=== PATIENT | male | born 2000 | race African-American/Black ===

== ENCOUNTER 2021-08-05 11:45 | Emergency (ER) | payer OTHER, SELFPAY ==
--- NOTE | ~2021-08-05 | XR_ITS ---
EXAMINATION: XR CHEST CLINICAL INFORMATION: Shortness of breath and wheezing COMPARISON: None TECHNIQUE: 2 views of the chest were obtained. FINDINGS: No significant abnormality is noted involving the heart, lungs, mediastinum, bony thorax or soft tissues. XR/XR chest 2V IMPRESSION: Unremarkable examination.
[2021-08-05 11:55] VITALS: BP 130/80; PULSE 72; RESP 18; TEMP 37.1; O2SAT 97; BMI 27.8
[2021-08-05] MEDS: Albuterol/Iprat 2.5/0.5MG 3 ML AMPUL.NEB INHALE (13:16)
[2021-08-05] MEDS: predniSONE 20 MG TABLET 60 MG PO (13:17)
--- NOTE | 2021-08-05 13:19 | ED.ASTHMA ---
HPI - Asthma General Chief Complaint: Asthma Stated Complaint: difficulty breathing Time Seen by Provider: 08/05/21 12:53 Source: patient Mode of arrival: ambulatory Limitations: no limitations History of Present Illness HPI Narrative: 21-year-old male with a history of asthma here with complaints of cough and wheezing for 1 month after running out of his home Flovent and albuterol. He tells me he does not have a primary care doctor and that is why he ran out of his medication. He denies any fevers, chills, shortness of breath or chest pain. Today he felt like he had an asthma attack and was able to use the sister's albuterol inhaler with improvement of symptoms. Related Data Previous Rx's Medication Instructions Recorded prednisone 20 mg tablet 40 mg PO DAILY #8 tab 08/05/21 Allergies Allergy/AdvReac Type Severity Reaction Status Date / Time No Known Allergies Allergy Verified 08/05/21 11:58 Review of Systems Review of Systems: Yes all other systems are reviewed and are negative Constitutional: Constitutional: Reports no additional constitutional complaints, Denies body ache(s), Denies chills, Denies fever(s), Denies headache(s) and Denies weakness Eyes: Eyes: Reports no additional eye complaints and Denies change in vision ENT: Reports system reviewed and no additional complaints, except as documented, Denies dizziness, Denies headache(s), Denies nasal congestion, Denies nasal discharge and Denies neck pain Cardiovascular: Cardiovascular: Reports no additional cardiovascular complaints, Denies chest pain, Denies leg edema and Denies dyspnea Respiratory: Respiratory: Reports no additional respiratory complaints, Reports cough, Denies dyspnea and Reports wheezing Gastrointestinal: Gastrointestinal: Reports no additional gastrointestinal complaints, Denies abdominal pain, Denies diarrhea, Denies nausea and Denies vomiting Genitourinary: Genitourinary: Denies urinary incontinence Musculoskeletal: Musculoskeletal: Reports no additional musculoskeletal complaints, Denies back pain, Denies arthralgias, Denies joint swelling, Denies neck pain, Denies numbness and Denies tingling Integumentary/Breasts: Skin/Breast: Reports system reviewed and no additional complaints, except as docu and Denies rash Neurologic: Reports system reviewed and no additional complaints, except as documented, Denies Abnormal speech present, Denies dizziness, Denies headache(s), Denies numbness, Denies tingling and Denies weakness Allergic/Immunologic: Allergic/Immunologic: Reports wheezing PMFSH Past Medical History Attestation statement: The following information was validated with the patient. Source: old records reviewed and nursing notes reviewed Social History Social History Advance Directives: No Advance Directives Information Provided: Yes Physical Exam Vital Signs: Vital Signs: Last Vital Signs Temp 97.8 F 08/05/21 13:50 Pulse 70 08/05/21 13:50 Resp 16 08/05/21 13:50 BP 104/71 08/05/21 13:50 Pulse Ox 97 08/05/21 13:50 Body Mass Index 27.8 Const: General: cooperative, healthy appearing, comfortable and no acute distress Orientation/consciousness: patient oriented x3 Limitations: no limitations HENMT: Head: Yes normal to inspection Ears: hearing grossly normal bilaterally General nose exam: Normal external nose present Face and sinus: Yes normal facial exam Mouth: Normal oral and palatal mucosa present Throat: Yes posterior oropharynx normal Eyes: General: appearance normal, both eyes and all related structures Pupils: Equal, round and reactive pupils present Neck: Neck: Yes normal visual inspection Chest: Chest palpation & inspection: normal inspection of the chest Resp: Other: Inspiratory and expiratory wheezing throughout Effort & Inspection: normal respiratory effort Cardio: Rate: regular rate Rhythm: regular rhythm Peripheral pulses: Peripheral pulses 2+ throughout GI: Inspection: Yes normal to inspection Palpation (GI): Soft to palpation and nontender Auscultation: normal bowel sounds Back/Spine/Pelvis: Thoracic/Lumbar Spine: thoracic and lumbar spine normal to inspection Skin: General skin exam: no rashes or lesions noted Neuro: General: patient oriented x3, no focal motor deficits and normal sensation to monofilament Cranial nerves: Yes Equal, round and reactive pupils present Cognition (Neuro): normal cognition Speech: No Abnormal speech present Gait exam (Neuro): Normal gait present Motor exam (neuro): 5/5 motor strength present throughout Extrem: General: Yes normal to inspection, Yes no pedal edema and Yes no calf tenderness Course Course Course Narrative: 21 year old man here with asthma symptoms. Ran out of medication and does not have a primary. On arrival patient is well appearing. . Stable vital inspiratory and expiratory wheezing throughout. Will give DuoNeb, check chest x-ray and COVID screen. 1430-COVID screen negative. Chest x-ray shows no acute finding. Patient is feeling improved after receiving the albuterol nebulizer. Will discharge home with albuterol MDI and a course of prednisone. Reviewed worrisome signs and symptoms of when to return to the emergency department. Comfortable discharge home. MDM - Asthma MDM Narrative Medical decision making narrative: perc 0-less likey pe Medical Records Attestation: I reviewed the patient's medical records. Lab Data Attestation: I reviewed the patient's lab results. Labs: Lab Results 08/05/21 Range/Units 13:41 COVID-19 (MICHELLE) Negative (Negative) COVID-19 Clin Com See Note Imaging Data Chest x-ray: Attestation: I personally reviewed and interpreted this imaging study as follows: Radiologist's impression: Alma angel [employer]~ EXAMINATION: XR CHEST CLINICAL INFORMATION: Shortness of breath and wheezing COMPARISON: None TECHNIQUE: 2 views of the chest were obtained. FINDINGS: No significant abnormality is noted involving the heart, lungs, mediastinum, bony thorax or soft tissues. XR/XR chest 2V IMPRESSION: Unremarkable examination. Discharge Plan Discharge Clinical Impression: Asthma with acute exacerbation Patient Disposition: Home, Self-Care Instructions: Asthma (ED) Additional Instructions: Chest x-ray is negative COVID screen negative Start prednisone tomorrow Use inhaler 2 puffs every 4-6 hours as needed for cough or wheezing Prescriptions: New prednisone 20 mg tablet 40 mg PO DAILY Qty: 8 RF: 0 Referrals: Nigel Johnson MD [Primary Care Provider] - 2 days Stand Alone Forms: Work/School Release Interventions: ED Discharge Assessment Last Done: 08/05/21 14:27
[2021-08-05 13:50] VITALS: BP 104/71; PULSE 70; RESP 16; TEMP 36.6; O2SAT 97
[2021-08-05 14:15] LABS: COVID-19 Test Negative (Negative)
[2021-08-05] MEDS: Albuterol Sulfate 90 MCG 8 GM INHALER 2 PUFF INHALE (14:37)
== END 2021-08-05 14:38 | disposition home or self-care (01) ==
PROVIDERS: Nurse Practitioner Family; Emergency Provider Emergency Medicine; PCP Pediatrics
DX: J45.901 Unspecified asthma with (acute) exacerbation (principal); Z20.822 Contact with and (suspected) exposure to COVID-19
CPT/HCPCS: 36415; 71046; 87635; 99284

== ENCOUNTER 2021-09-13 12:10 | Emergency (ER) | payer OTHER, SELFPAY ==
[2021-09-13 13:11] VITALS: BP 131/71; PULSE 95; RESP 16; TEMP 37.6; O2SAT 96; BMI 29.2
[2021-09-13 13:51] LABS: Strep A Nucleic Acid Negative (Negative)
[2021-09-13 14:15] LABS: Influenza A PCR NEGATIVE (Negative); Influenza B PCR NEGATIVE (Negative); Resp Syncy Virus RNA Qual PCR NEGATIVE (Negative); SARS COV2 PCR INHOUSE NEGATIVE (Negative)
--- NOTE | 2021-09-13 14:40 | ED.URI ---
HPI - URI/Sore Throat General Chief Complaint: Upper Respiratory Symptoms Stated Complaint: Sore Throat COVID Exposure Time Seen by Provider: 09/13/21 12:47 Source: patient and family (Girlfriend at bedside ) Mode of arrival: ambulatory Limitations: no limitations History of Present Illness MD elicited complaint: sore throat Onset (ago): day(s) (2) Consistency: constant and progressively worsening Severity: moderate Able to tolerate fluids by mouth: Yes Exacerbating factors: swallowing Relieving factors: nothing Context: sick contacts ( Patient's girlfriend with similar sore throat and patient works with a co-worker that tested positive for COVID) Associated symptoms: denies other symptoms Treatments prior to arrival: none Related Data Previous Rx's Medication Instructions Recorded prednisone 20 mg tablet 40 mg PO DAILY #8 tab 08/05/21 amoxicillin 875 mg-potassium 1 tab PO BID 10 Days #20 tab 09/13/21 clavulanate 125 mg tablet (Augmentin) ibuprofen 800 mg tablet 800 mg PO Q8H PRN #14 tab 09/13/21 Allergies Allergy/AdvReac Type Severity Reaction Status Date / Time No Known Allergies Allergy Verified 08/05/21 11:58 Review of Systems Review of Systems: Constitutional : No Weight loss, No Fever, No Chills, No Night Sweats, No Fatigue, No Malaise ENT/Mouth : No Hearing loss, No Ear Pain, No Nasal Congestion, No Sinus Pain, No Hoarseness, + sore throat, No Rhinorrhea, No Swallowing Difficulty Eyes: No Eye Pain, No Swelling, No Redness, No Foreign Body, No Discharge, No Vision Changes Cardiovascular : No Chest Pain, No SOB, No Dyspnea on Exertion, No Orthopnea, No Edema, No Palpitations Respiratory : No Cough, No Sputum, No Wheezing, No Smoke Exposure, No Dyspnea Gastrointestinal : No Nausea, No Vomiting, No Diarrhea, No Constipation, No abdominal Pain, No Hematochezia, No Melena Genitourinary : no irregular bleeding, No Dysuria, No Urinary Frequency, No Hematuria, No Urinary Incontinence, No Urgency, No Flank Pain, No Urinary Flow Changes, No Hesitancy Musculoskeletal : No joint pain, No Myalgias, No Joint Swelling Skin : No Skin Lesions, No rash Neuro : No Weakness, No Numbness, No Paresthesias, No Loss of Consciousness, No Dizziness, No Headache Psych : No Anxiety/Panic, No Depression, No SI/HI/AH/VH, No Social Issues, Heme/Lymph: No Bruising, No Bleeding,No Lymphadenopathy Endocrine : No Polyuria, No Polydipsia, No Temperature Intolerance Yes all other systems are reviewed and are negative [facility] Past Medical History Attestation statement: The following information was validated with the patient. Medical History Asthma Social History Social History Advance Directives: No Advance Directives Information Provided: No Physical Exam Vital Signs: Vital Signs: Last Vital Signs Temp 99.7 F 09/13/21 13:11 Pulse 95 09/13/21 13:11 Resp 16 09/13/21 13:11 BP 131/71 09/13/21 13:11 Pulse Ox 96 09/13/21 13:11 BMI result Body Mass Index 29.2 vital signs have been reviewed as normal and appeared to be correct. Blood pressure normal. Heart rate normal. Respiration rate normal. Temperature normal. Oxygen saturation normal. Appearance: Alert. Oriented X3. No acute distress. Head: Normal external exam. Normocephalic. Atraumatic. Eyes: PERRLA. EOMI. Conjunctiva and sclera normal. Eyelids normal. ENT: EAC normal. TM's Normal. posterior pharynx mildly erythematous with moderate amounts of exudate that is easily removable with a cotton swab throughout. Uvula midline. Moist mucous membranes. No trismus noted. No drooling noted. No muffled voice noted. Neck: Normal inspection. Neck supple. FROM. No adenopathy. Thyroid Normal. No meningeal signs. No neck mass noted. CVS: Normal heart rate and rhythm. Respiratory: No respiratory distress. Painless inspiration. Back: Full range of motion noted. No rashes/lesion/induration/fluctuance or signs of infection noted. Skin: Skin warm and dry. Normal skin color. Normal skin turgor. No rashes/lesions/lacerations noted. Extremities: Extremities exhibit normal range of motion. Extremities nontender. Neuro: Oriented X 3. No motor deficit. No sensory deficit. Reflexes normal. Normal steady gait. No focal neuro deficits noted. Course Course Course Narrative: 21-year-old male presenting to the ED with his girlfriend with a sore throat for the past 2 days worse today. he reports that he has a co-worker that tested positive for COVID. he denies any other symptoms complaints or concerns. he was negative for COVID/RSV/flu. he is negative for strep. I explained him that we should tested for mono although refused and is requesting antibiotics for bacterial pharyngitis due to he believes he got this from his girlfriend who gets tonsillitis yearly. Despite him having a negative strep will send him home on antibiotics with instructions return if any new or worsening symptoms to follow up with primary care provider. Patient understands agrees this plan. MDM - URI/Sore Throat Medical Records Attestation: I reviewed the patient's medical records. Lab Data Attestation: I reviewed the patient's lab results. Labs: Lab Results 09/13/21 09/13/21 Range/Units 13:18 13:18 Influenza Type A (PCR) NEGATIVE (Negative) Influenza Type B (PCR) NEGATIVE (Negative) RSV RNA Qual (PCR) NEGATIVE (Negative) SARS-CoV-2 RNA (RT-PCR) NEGATIVE (Negative) S. pyogenes GrpA SHIRA Negative (Negative) Discharge Plan Discharge Clinical Impression: Pharyngitis Patient Disposition: Home, Self-Care Instructions: Pharyngitis (ED) Prescriptions: New amoxicillin-pot clavulanate [Augmentin] 875-125 mg tablet 1 tab PO BID 10 Days Qty: 20 RF: 0 ibuprofen 800 mg tablet 800 mg PO Q8H PRN (Reason: pain) Qty: 14 RF: 0 No Action prednisone 20 mg tablet 40 mg PO DAILY Qty: 8 RF: 0 Referrals: Physician,None [Primary Care Provider] - 2 days (your pcp) Interventions: ED Discharge Assessment Last Done: 09/13/21 14:49 Print Language: Bengali
== END 2021-09-13 14:50 | disposition home or self-care (01) ==
PROVIDERS: Physician Assistant Medical; Emergency Provider Emergency Medicine
DX: J02.9 Acute pharyngitis, unspecified (principal); Z20.822 Contact with and (suspected) exposure to COVID-19
CPT/HCPCS: 0241U; 36415; 87651; 99283

== ENCOUNTER 2021-10-08 07:43 | Emergency (ER) | payer OTHER, SELFPAY ==
--- NOTE | ~2021-10-08 | XR_ITS ---
EXAMINATION: XR CHEST CLINICAL INFORMATION: 1 COMPARISON: August 05, 2021 TECHNIQUE: AP portable view of the chest was obtained. FINDINGS: No significant abnormality is noted involving the heart, lungs, mediastinum, bony thorax or soft tissues. XR/XR chest 1V IMPRESSION: No acute disease.
[2021-10-08 08:27] VITALS: BP 155/95; PULSE 98; RESP 18; TEMP 36.6; O2SAT 95; BMI 30.7
--- NOTE | 2021-10-08 08:27 | ED_ITS ---
HPI - SOB/Dyspnea General Chief Complaint: Dyspnea Stated Complaint: asthma Time Seen by Provider: 10/08/21 08:05 Source: patient Mode of arrival: ambulatory Limitations: no limitations History of Present Illness HPI Narrative: 21-year-old male with long history of asthma came in for evaluation of asthma exacerbation. Patient with difficulty breathing and wheezing for the past 2-3 days, patient do not have asthma medication at home using his sister medication. Patient declined any upper respiratory symptoms infection. No sick contact, no recent travel. No fevers Patient admits to smoking marijuana mostly on the daily basis. Related Data Previous Rx's Medication Instructions Recorded prednisone 20 mg tablet 40 mg PO DAILY #8 tab 08/05/21 amoxicillin 875 mg-potassium 1 tab PO BID 10 Days #20 tab 09/13/21 clavulanate 125 mg tablet (Augmentin) ibuprofen 800 mg tablet 800 mg PO Q8H PRN #14 tab 09/13/21 albuterol sulfate 90 mcg/actuation 1 inh INHALATION QID PRN #6.7 g 10/08/21 aerosol inhaler prednisone 20 mg tablet 20 mg PO BID #10 tab 10/08/21 Allergies Allergy/AdvReac Type Severity Reaction Status Date / Time No Known Allergies Allergy Verified 08/05/21 11:58 Review of Systems Review of Systems: All other systems are reviewed and are negative Constitutional: Reports as per HPI and Reports no additional constitutional complaints Eyes: Reports as per HPI and Reports no additional eye complaints Reports system reviewed and no additional complaints, except as documented Cardiovascular: Reports as per HPI and Reports no additional cardiovascular complaints Respiratory: Reports as per HPI and Reports no additional respiratory complaints Gastrointestinal: Reports as per HPI and Reports no additional gastrointestinal complaints Genitourinary: Reports no additional female genitourinary complaints Musculoskeletal: Reports no additional musculoskeletal complaints Skin/Breast: Reports system reviewed and no additional complaints, except as docu Psychiatric: Reports no additional psychiatric complaints Endocrine: Reports no additional endocrine complaints Hematologic/Lymphatic: Reports no additional hematologic/lymphatic complaints Allergic/Immunologic: Reports no additional allergic/immunologic complaints Reports system reviewed and no additional complaints, except as documented and Reports Abnormal speech present [facility] Past Medical History Medical History Asthma Social History Social History Advance Directives: No Advance Directives Information Provided: Yes Physical Exam Vital Signs: Vital Signs: Last Vital Signs Temp 98 F 10/08/21 08:27 Pulse 87 10/08/21 08:32 Resp 18 10/08/21 08:32 BP 155/95 H 10/08/21 08:27 Pulse Ox 95 10/08/21 08:27 BMI result Body Mass Index 30.7 Vital signs have been reviewed as appeared to be correct. Blood pressure normal. Heart rate normal. Respiration rate normal. Temperature normal. Oxygen saturation normal. Appearance: Alert. Oriented X3. No acute distress. Head: Normal external exam. Normocephalic. Atraumatic. No Moncada signs noted. No raccoon eyes noted Eyes: PERRLA. EOMI. Conjunctiva and sclera normal. Eyelids normal. ENT: TM's Normal. Pharynx normal. Uvula midline. Moist mucous membranes. No trismus noted. No drooling noted. No muffled voice noted. Neck: Normal inspection. Neck supple. FROM. No adenopathy. Thyroid Normal. No meningeal signs. No neck mass noted. CVS: Normal heart rate and rhythm. Heart sound normal. No murmurs noted. Pulses normal throughout. Respiratory: No respiratory distress. Painless inspiration. Breath sounds normal. No wheezes/rales/rhonchi noted. Chest nontender. No accessory muscle usage noted or decreased air movement noted. Abdomen: Soft and nontender. Bowel sounds normal in all 4 quadrants. No distention noted. No organomegaly noted. No visible injury noted. Back: No CVA tenderness. Full range of motion noted. Skin: Skin warm and dry. Normal skin color. Normal skin turgor. No rashes/lesions/lacerations noted. Extremities: No lower extremity edema. Extremities exhibit normal range of motion. Extremities nontender. Neuro: Oriented X 3. Cranial nerve exam: II-XII are grossly intact No motor deficit. No sensory deficit. Reflexes normal. Course Course Course Narrative: Acute asthma exacerbation. Patient needed prescription for bronchodilator/will start the patient on prednisone for few days. MDM - SOB/Dyspnea Lab Data Attestation: I reviewed the patient's lab results. Labs: Lab Results 10/08/21 Range/Units 08:38 Influenza Type A (PCR) NEGATIVE (Negative) Influenza Type B (PCR) NEGATIVE (Negative) RSV RNA Qual (PCR) NEGATIVE (Negative) SARS-CoV-2 RNA (RT-PCR) NEGATIVE (Negative) Imaging Data Chest x-ray: Attestation: I personally reviewed and interpreted this imaging study as follows: Radiologist's impression: No acute pathology. Discharge Plan Discharge Clinical Impression: Asthma exacerbation Patient Disposition: Home, Self-Care Instructions: Asthma (ED) Prescriptions: New prednisone 20 mg tablet 20 mg PO BID Qty: 10 RF: 0 albuterol sulfate 90 mcg/actuation HFA aerosol inhaler 1 inh inhalation QID PRN (Reason: shortness of breath or wheezing) Qty: 6.7 RF: 0 No Action prednisone 20 mg tablet 40 mg PO DAILY Qty: 8 RF: 0 amoxicillin-pot clavulanate [Augmentin] 875-125 mg tablet 1 tab PO BID 10 Days Qty: 20 RF: 0 ibuprofen 800 mg tablet 800 mg PO Q8H PRN (Reason: pain) Qty: 14 RF: 0 Referrals: Physician,None [Primary Care Provider] - 2 days
[2021-10-08] MEDS: Albuterol/Iprat 2.5/0.5MG 3 ML AMPUL.NEB INHALE (08:31)
[2021-10-08] MEDS: Albuterol Sulfate (0.083%) 2.5 MG/3 ML VIAL.NEB 5 MG INHALE (08:31)
[2021-10-08 08:32] VITALS: PULSE 87; RESP 18; O2SAT 97
[2021-10-08] MEDS: Albuterol Sulfate 90 MCG 8 GM INHALER 1 PUFF INHALE (08:33)
[2021-10-08] MEDS: predniSONE 20 MG TABLET 40 MG PO (08:36)
[2021-10-08 09:30] LABS: Influenza A PCR NEGATIVE (Negative); Influenza B PCR NEGATIVE (Negative); Resp Syncy Virus RNA Qual PCR NEGATIVE (Negative); SARS COV2 PCR INHOUSE NEGATIVE (Negative)
[2021-10-08 10:07] VITALS: PULSE 91; RESP 16; O2SAT 97
== END 2021-10-08 10:24 | disposition home or self-care (01) ==
PROVIDERS: Emergency Provider Emergency Medicine
DX: J45.901 Unspecified asthma with (acute) exacerbation (principal); Z20.822 Contact with and (suspected) exposure to COVID-19; F12.90 Cannabis use, unspecified, uncomplicated
CPT/HCPCS: 0241U; 71045; 94640; 94644; 99282; 99285

== ENCOUNTER 2022-07-20 15:52 | Emergency (ER) | payer OTHER, SELFPAY ==
--- NOTE | ~2022-07-20 | XR_ITS ---
EXAMINATION: XR CHEST CLINICAL INFORMATION: Cough COMPARISON: Previous chest x-rays July and September 2021 TECHNIQUE: Frontal view of the chest was obtained. FINDINGS: The cardiac silhouette does not appear enlarged. There are increased right suprahilar lung markings and question central right upper lobe bronchiectasis and bronchial wall thickening. The lungs are otherwise clear. There is no pleural effusion or pneumothorax. Bony structures are unremarkable. XR/XR chest 1V IMPRESSION: Question focal small central infiltrate in the right upper lobe and right upper lobe central bronchiectasis and bronchial wall thickening. Chest x-ray follow-up following antibiotic therapy recommended. If radiographic abnormality persists, follow-up chest CT scan should be considered.
[2022-07-20 16:12] VITALS: BP 124/69; PULSE 104; RESP 20; TEMP 38.1; O2SAT 96; BMI 29.8
[2022-07-20] MEDS: Acetaminophen 325 MG TABLET 650 MG PO (16:18)
[2022-07-20 16:35] LABS: Strep A Nucleic Acid Negative (Negative)
[2022-07-20 17:05] LABS: Influenza A PCR NEGATIVE (Negative); Influenza B PCR NEGATIVE (Negative); Resp Syncy Virus RNA Qual PCR NEGATIVE (Negative); SARS COV2 PCR INHOUSE NEGATIVE (Negative)
== END 2022-07-20 23:43 | disposition left against medical advice (07) ==
PROVIDERS: Emergency Provider Emergency Medicine
DX: J02.9 Acute pharyngitis, unspecified (principal); Z20.822 Contact with and (suspected) exposure to COVID-19; R50.9 Fever, unspecified
CPT/HCPCS: 0241U; 71045; 87651; 99282; 99283

== ENCOUNTER 2022-10-12 09:55 | Emergency (ER) | payer OTHER, SELFPAY ==
--- NOTE | ~2022-10-12 | XR_ITS ---
EXAMINATION: XR chest 2V CLINICAL INFORMATION: Reason for Exam asthma, cough, shortness of breath COMPARISON: 07/20/2022 TECHNIQUE: XR chest 2V Lungs and Natali: Both lungs are clear. Pleura: Normal. Costophrenic angles are sharp. No pneumothorax. Heart: The heart is normal in size. Mediastinum: The mediastinum is within normal limits.. Bones: Skeletal structures included are normal for patient's age. XR/XR chest 2V IMPRESSION: Normal chest x-ray.
[2022-10-12 10:34] VITALS: BP 124/81; PULSE 124; RESP 18; TEMP 37.8; O2SAT 96; BMI 30.5
[2022-10-12] MEDS: Acetaminophen 325 MG TABLET 975 MG PO (10:47)
[2022-10-12 11:09] LABS: COVID-19 Test Negative (Negative); IDNOW Serial# 16C4AD1C; IDNOW Serial# BCCEAD1C; Influenza A Positive (Negative); Influenza B2 Negative (Negative)
--- NOTE | 2022-10-12 11:57 | ED.ASTHMA ---
HPI - Asthma General Chief Complaint: Upper Respiratory Symptoms Stated Complaint: fever asthma Time Seen by Provider: 10/12/22 10:47 Source: patient Mode of arrival: ambulatory Limitations: no limitations History of Present Illness HPI Narrative: Patient is a 22-year-old male who presents to the emergency department for evaluation of upper respiratory symptoms. Patient states that symptom onset was yesterday evening. He was having intermittent chest tightness, shortness of breath, wheezing, fevers, sweating, and intermittent headache. He reports a history of asthma, has been using his girlfriend's albuterol nebulizer machine with some improvement. Girlfriend is also ill with similar symptoms. Denies dizziness, lightheadedness, vision changes, neck pain, neck stiffness, nausea, vomiting, abdominal pain, numbness or tingling of extremities. Related Data Previous Rx's Medication Instructions Recorded prednisone 20 mg tablet 40 mg PO DAILY #8 tabs 08/05/21 amoxicillin 875 mg-potassium 1 tab PO BID 10 days #20 tabs 09/13/21 clavulanate 125 mg tablet (Augmentin) ibuprofen 800 mg tablet 800 mg PO Q8H PRN pain #14 tabs 09/13/21 albuterol sulfate 90 mcg/actuation 1 inh inhalation QID PRN shortness 10/08/21 aerosol inhaler of breath or wheezing #6.7 grams prednisone 20 mg tablet 20 mg PO BID #10 tabs 10/08/21 albuterol sulfate 2.5 mg/3 mL 2.5 mg (3 mL) inhalation Q4-6H PRN 10/12/22 (0.083 %) solution for nebulization shortness of breath or wheezing #75 mL albuterol sulfate 90 mcg/actuation 2 inh inhalation Q4-6H PRN 10/12/22 breath activated powder inhaler shortness of breath or wheezing #1 ea oseltamivir 75 mg capsule (Tamiflu) 75 mg PO BID 5 days #10 caps 10/12/22 prednisone 20 mg tablet 40 mg PO DAILY #8 tabs 10/12/22 Allergies Allergy/AdvReac Type Severity Reaction Status Date / Time No Known Allergies Allergy Verified 08/05/21 11:58 Review of Systems Review of Systems: Constitutional: Positive fever. No chills. No weakness. Positive fatigue. ENT/ Mouth: No Ear Pain, positive Nasal Congestion, nosore throat, No Rhinorrhea, No Swallowing Difficulty Skin: No rash or itching. Cardiovascular: positive chest tightness. No palpitations. Respiratory: positive shortness of breath. Positive cough. positive wheezing.No sputum production. Gastrointestinal: No nausea. No vomiting. No diarrhea. No abdominal pain. Genitourinary: No burning micturition. No urinary frequency. Neurologic: Positive headache. No dizziness. No syncope. No numbness or tingling in the extremities. Musculoskeletal: No muscle pain. No back pain. No joint pain or stiffness. Yes all other systems are reviewed and are negative [facility] Past Medical History Attestation statement: The following information was validated with the patient. Source: old records reviewed Medical History Asthma Social History Social History Advance Directives: No Advance Directives Information Provided: No Physical Exam Vital Signs: Vital Signs: Last Vital Signs Temp 99.1 F 10/12/22 14:50 Pulse 125 H 10/12/22 14:50 Resp 19 10/12/22 14:50 BP 115/63 10/12/22 14:50 Pulse Ox 95 10/12/22 14:50 O2 Del Method 10/12/22 14:50 BMI result Body Mass Index 30.5 Appearance: Alert.?Oriented to person, place and time. No acute distress.?Normal affect. Eyes: Pupils equal, round and reactive to light.? ENT: TM normal bilaterally. Pharynx normal.?? Neck: Normal inspection.? Neck supple.??No cervical adenopathy CVS: Heart sounds normal. Normal heart rate and rhythm.? Pulses normal.?? Respiratory: No respiratory distress.? Lung sounds clear the excretory wheezing throughout Abdomen: Soft and non-tender. Normoactive bowel sounds. Skin: Skin warm and dry.? Normal skin color.? ? Extremities: No lower extremity edema.? Neuro: Moves all extremities spontaneously. Sensation intact bilaterally. No motor deficits. Ambulates with normal steady gait. Course Reevaluation(s) Reevaluation #1: COVID-19 testing is negative. Influenza testing is positive, patient would like to receive treatment with Tamiflu, side effects reviewed. At this time history and physical exam not consistent with ACS/PE/pneumonia. patient received albuterol nebulizer and prednisone with improvement in aeration, inspiratory and expiratory wheezing remains. O2 saturation 94% on room air, tachycardic with heart rate in the 120s. Patient would like to try and go home today, will obtain ambulatory O2 trial removed in addition will have patient received additional albuterol nebulizer, although this may contribute to his tachycardia, would like to see improvement in respiratory status prior to discharge. Time: 12:47 Reevaluation #2: Lung sounds improvement in aeration, no wheezing at this time. He is tachycardic, heart rate 115-120, although I think this is reactive due to albuterol. Room air ambulatory O2 trial with O2 sat greater than 95%, has no dyspnea. He is afebrile. Requesting discharge home at this time, I feel that he is stable for discharge, Will send prescription for albuterol solution, albuterol inhaler, and prednisone in addition to Tamiflu. Discussed conservative treatment including rest, hydration, Tylenol/ibuprofen as needed for fever and body aches, saline nasal spray, humidifier, [id number] cold medication. Advised to follow-up with primary care provider as needed, discussed reasons to return back to the emergency department. All questions were answered. Patient discharged home in stable condition. Provided with a return to work note. Time: 14:15 Medications Administered Discontinued Medications Generic Name Dose Route Start Last Admin Trade Name Freq PRN Reason Stop Dose Admin Acetaminophen 975 mg 10/12/22 10:42 10/12/22 10:47 Acetaminophen 325 Mg Tablet PO 10/12/22 10:43 975 mg ONCE ONE Administration Albuterol Sulfate 5 mg/ 7.5 mg 10/12/22 11:21 10/12/22 12:13 Albuterol Sulfate 2.5 mg INHALE 10/12/22 11:22 7.5 mg ONCE ONE Administration Albuterol Sulfate 7.5 mg/ 10 mg 10/12/22 12:57 10/12/22 13:29 Albuterol Sulfate 2.5 mg INHALE 10/12/22 12:58 10 mg ONCE ONE Administration Albuterol/Ipratropium 3 ml 10/12/22 11:21 10/12/22 12:13 Albuterol/Iprat 2.5/0.5mg 3 Ml Ampul.Neb INHALE 10/12/22 11:22 3 ml ONCE ONE Administration Prednisone 40 mg 10/12/22 11:21 10/12/22 12:33 Prednisone 20 Mg Tablet PO 10/12/22 11:22 40 mg ONCE ONE Administration Medical Decision Making Medical Decision Making [facility] Narrative: Patient is a 22-year-old male with past medical history of alcohol asthma, presenting for evaluation of upper respiratory symptoms. overall he is well-appearing the, fever 100.1, tachycardic with heart rate in the 120s, O2 saturation 93% on room air. No increased work of breathing or tachypnea, though he does have expiratory wheezing throughout. Patient received albuterol nebulizer treatment, in addition to oral prednisone. Given his significant other is also in similar symptoms I suspect viral upper respiratory infection causing acute exacerbation of asthma. He is able to speak in clear short sentences, is ambulatory with a steady gait. Will obtain chest x-ray to further evaluate for pneumonia, in addition to COVID - 19 and influenza testing. Differential Diagnosis Differential Diagnoses: The differential diagnosis associated with the presentation includes ( As noted above) Lab Data [facility] Lab Attestation statement: I reviewed the patient's lab results. Labs: Lab Results 10/12/22 10/12/22 Range/Units 10:50 10:50 COVID-19 (MICHELLE) Negative (Negative) COVID-19 Clin Com See Note Influenza Type A (SHIRA) Positive A (Negative) Influenza Type B (SHIRA) Negative (Negative) Influenza A & B Note See Note Independent Interpretation I performed an independent interpretation of an: Plain X-Ray Interpretation: I reviewed chest x-ray personally and agree with radiologist impression. Radiology Impression Discussion of test interpretation with radiology: I have reviewed the radiologist's reading. Radiologist Impression: XR/XR chest 2V IMPRESSION: Normal chest x-ray. Prescription Management I considered prescription management with: Antiviral ( Prescription for Tamiflu presents to patient's pharmacy.) and Other ( Prednisone, albuterol inhaler, albuterol nebulizer solution) Discharge Plan Discharge Clinical Impression: Influenza, Asthma exacerbation Patient Disposition: Home, Self-Care Instructions: Asthma (ED), Influenza (ED) Additional Instructions: prescription for prednisone, albuterol, and Tamiflu were sent to your pharmacy you should return to the emergency department any new or worsening symptoms or concerns. This includes but is not limited to chest pain, shortness of breath, difficulty breathing, dizziness, lightheadedness. Should be sure to rest, drink plenty of fluids. Alternate between Tylenol and ibuprofen as needed for fever or pain. You should remain out of work until you are without fever for 24 hours. If without the use of Tylenol or ibuprofen. Follow-up with your primary care provider Prescriptions: New prednisone 20 mg tablet 40 mg PO DAILY Qty: 8 0RF albuterol sulfate 2.5 mg /3 mL (0.083 %) solution for nebulization 2.5 mg inhalation Q4-6H PRN (Reason: shortness of breath or wheezing) Qty: 75 0RF albuterol sulfate 90 mcg/actuation aerosol powdr breath activated 2 inh inhalation Q4-6H PRN (Reason: shortness of breath or wheezing) Qty: 1 0RF oseltamivir [Tamiflu] 75 mg capsule 75 mg PO BID 5 Days Qty: 10 0RF No Action prednisone 20 mg tablet 20 mg PO BID Qty: 10 0RF albuterol sulfate 90 mcg/actuation HFA aerosol inhaler 1 inh inhalation QID PRN (Reason: shortness of breath or wheezing) Qty: 6.7 0RF prednisone 20 mg tablet 40 mg PO DAILY Qty: 8 0RF amoxicillin-pot clavulanate [Augmentin] 875-125 mg tablet 1 tab PO BID 10 Days Qty: 20 0RF ibuprofen 800 mg tablet 800 mg PO Q8H PRN (Reason: pain) Qty: 14 0RF Referrals: Physician,Unknown J [Primary Care Provider] - Stand Alone Forms: Work/School Release Interventions: ED Discharge Assessment Last Done: 10/12/22 15:19 Discharge Date/Time: 10/12/22 15:19
[2022-10-12] MEDS: Albuterol/Iprat 2.5/0.5MG 3 ML AMPUL.NEB INHALE (12:13)
[2022-10-12] MEDS: Albuterol Sulfate 5 MG, Albuterol Sulfate (0.083%) 2.5 MG 7.5 MG INHALE (12:13)
[2022-10-12 12:14] VITALS: PULSE 104; RESP 18; O2SAT 97
[2022-10-12] MEDS: predniSONE 20 MG TABLET 40 MG PO (12:33)
[2022-10-12 12:34] VITALS: BP 128/66; PULSE 119; RESP 16; O2SAT 97
--- NOTE | 2022-10-12 13:02 | MHC.EDTECH ---
walking 02 sat check performed. pt 02 sat stayed 95% both sitting and walking
[2022-10-12] MEDS: Albuterol Sulfate 7.5 MG, Albuterol Sulfate (0.083%) 2.5 MG 10 MG INHALE (13:29)
[2022-10-12 14:30] VITALS: BP 132/64; PULSE 127; RESP 22; TEMP 37.1; O2SAT 95
[2022-10-12 14:50] VITALS: BP 115/63; PULSE 125; RESP 19; TEMP 37.3; O2SAT 95
== END 2022-10-12 15:19 | disposition home or self-care (01) ==
PROVIDERS: Emergency Provider Student in an Organized Health Care Education/Training Program
DX: J11.1 Influenza due to unidentified influenza virus with other respiratory manifestations (principal); R50.9 Fever, unspecified; R00.0 Tachycardia, unspecified; J45.901 Unspecified asthma with (acute) exacerbation; Z20.822 Contact with and (suspected) exposure to COVID-19
CPT/HCPCS: 71046; 87502; 87635; 94640; 99284; 99285

== ENCOUNTER 2022-10-13 01:23 | Emergency (ER) | payer OTHER, SELFPAY ==
[2022-10-13] VITALS (7 sets, daily range): BP systolic 127–151; BP diastolic 70–84; PULSE 89–114; RESP 17–24; TEMP 36.9–37.9; O2SAT 96–98; BMI 30.5
--- NOTE | 2022-10-13 03:30 | ED.SOB ---
HPI - SOB/Dyspnea General Chief Complaint: Dyspnea Stated Complaint: difficulty breathing Time Seen by Provider: 10/13/22 03:19 Source: patient Mode of arrival: ambulatory Limitations: no limitations History of Present Illness HPI Narrative: 22-year-old male history of asthma was diagnosed yesterday with influenza a presented with increased wheezing and shortness of breath with no fever patient tried his asthma home medication with no relief. Coughing clear sputum. Related Data Previous Rx's Medication Instructions Recorded prednisone 20 mg tablet 40 mg PO DAILY #8 tabs 08/05/21 amoxicillin 875 mg-potassium 1 tab PO BID 10 days #20 tabs 09/13/21 clavulanate 125 mg tablet (Augmentin) ibuprofen 800 mg tablet 800 mg PO Q8H PRN pain #14 tabs 09/13/21 albuterol sulfate 90 mcg/actuation 1 inh inhalation QID PRN shortness 10/08/21 aerosol inhaler of breath or wheezing #6.7 grams prednisone 20 mg tablet 20 mg PO BID #10 tabs 10/08/21 albuterol sulfate 2.5 mg/3 mL 2.5 mg (3 mL) inhalation Q4-6H PRN 10/12/22 (0.083 %) solution for nebulization shortness of breath or wheezing #75 mL albuterol sulfate 90 mcg/actuation 2 inh inhalation Q4-6H PRN 10/12/22 breath activated powder inhaler shortness of breath or wheezing #1 ea oseltamivir 75 mg capsule (Tamiflu) 75 mg PO BID 5 days #10 caps 10/12/22 prednisone 20 mg tablet 40 mg PO DAILY #8 tabs 10/12/22 prednisone 20 mg tablet 20 mg PO BID #10 tabs 10/13/22 Allergies Allergy/AdvReac Type Severity Reaction Status Date / Time No Known Allergies Allergy Verified 08/05/21 11:58 Review of Systems Review of Systems: All other systems are reviewed and are negative Constitutional: Reports as per HPI and Reports no additional constitutional complaints Eyes: Reports as per HPI and Reports no additional eye complaints Reports system reviewed and no additional complaints, except as documented Cardiovascular: Reports as per HPI and Reports no additional cardiovascular complaints Respiratory: Reports as per HPI and Reports no additional respiratory complaints Gastrointestinal: Reports as per HPI and Reports no additional gastrointestinal complaints Genitourinary: Reports no additional female genitourinary complaints Musculoskeletal: Reports no additional musculoskeletal complaints Skin/Breast: Reports system reviewed and no additional complaints, except as docu Psychiatric: Reports no additional psychiatric complaints Endocrine: Reports no additional endocrine complaints Hematologic/Lymphatic: Reports no additional hematologic/lymphatic complaints Allergic/Immunologic: Reports no additional allergic/immunologic complaints Reports system reviewed and no additional complaints, except as documented and Reports Abnormal speech present [facility] Past Medical History Medical History Asthma Social History Social History Smoked in Last 30 Days: Yes Use of substances other than those prescribed or required for medical reasons: Yes Substance Use Type: Marijuana Advance Directives: No Physical Exam Vital Signs: Vital Signs: Last Vital Signs Temp 100.2 F 10/13/22 03:52 Pulse 93 10/13/22 04:26 Resp 18 10/13/22 04:26 BP 136/71 10/13/22 03:51 Pulse Ox 98 10/13/22 03:51 O2 Del Method 10/13/22 03:51 BMI result Body Mass Index 30.5 Vital signs have been reviewed as appeared to be correct. Blood pressure normal. Heart rate normal. Respiration rate normal. Temperature normal. Oxygen saturation normal. Appearance: Alert. Oriented X3. No acute distress. Head: Normal external exam. Normocephalic. Atraumatic. No Moncada signs noted. No raccoon eyes noted Eyes: PERRLA. EOMI. Conjunctiva and sclera normal. Eyelids normal. ENT: TM's Normal. Pharynx normal. Uvula midline. Moist mucous membranes. No trismus noted. No drooling noted. No muffled voice noted. Neck: Normal inspection. Neck supple. FROM. No adenopathy. Thyroid Normal. No meningeal signs. No neck mass noted. CVS: Normal heart rate and rhythm. Heart sound normal. No murmurs noted. Pulses normal throughout. Respiratory: No respiratory distress. Painless inspiration. Breath sounds normal. Diffuse mild expiratory wheezing with prolonged expiration. Chest nontender. No accessory muscle usage noted or decreased air movement noted. Abdomen: Soft and nontender. Bowel sounds normal in all 4 quadrants. No distention noted. No organomegaly noted. No visible injury noted. Back: No CVA tenderness. Full range of motion noted. Skin: Skin warm and dry. Normal skin color. Normal skin turgor. No rashes/lesions/lacerations noted. Extremities: No lower extremity edema. Extremities exhibit normal range of motion. Extremities nontender. Neuro: Oriented X 3. Cranial nerve exam: II-XII are grossly intact No motor deficit. No sensory deficit. Reflexes normal. Course Course Course Narrative: Asthma exacerbation with the flu, patient felt better after given prednisone in the ED with multiple bronchodilator treatment. Patient has enough albuterol at home both for the machine and pump will prescribed prednisone. Medications Administered Discontinued Medications Generic Name Dose Route Start Last Admin Trade Name Freq PRN Reason Stop Dose Admin Albuterol Sulfate 5 mg/ 7.5 mg 10/13/22 03:29 10/13/22 04:24 Albuterol Sulfate 2.5 mg INHALE 10/13/22 03:30 7.5 mg ONCE ONE Administration Albuterol/Ipratropium 3 ml 10/13/22 03:29 10/13/22 04:24 Albuterol/Iprat 2.5/0.5mg 3 Ml Ampul.Neb INHALE 10/13/22 03:30 3 ml ONCE ONE Administration Prednisone 20 mg 10/13/22 03:29 10/13/22 04:05 Prednisone 20 Mg Tablet PO 10/13/22 03:30 20 mg ONCE ONE Administration Medical Decision Making Differential Diagnosis Differential Diagnoses: The differential diagnosis associated with the presentation includes (Asthma exacerbation, bronchitis, pneumonia.) Discharge Plan Discharge Clinical Impression: Asthma with exacerbation Patient Disposition: Home, Self-Care Instructions: Asthma (ED) Prescriptions: New prednisone 20 mg tablet 20 mg PO BID Qty: 10 0RF No Action prednisone 20 mg tablet 20 mg PO BID Qty: 10 0RF albuterol sulfate 90 mcg/actuation HFA aerosol inhaler 1 inh inhalation QID PRN (Reason: shortness of breath or wheezing) Qty: 6.7 0RF prednisone 20 mg tablet 40 mg PO DAILY Qty: 8 0RF albuterol sulfate 2.5 mg /3 mL (0.083 %) solution for nebulization 2.5 mg inhalation Q4-6H PRN (Reason: shortness of breath or wheezing) Qty: 75 0RF albuterol sulfate 90 mcg/actuation aerosol powdr breath activated 2 inh inhalation Q4-6H PRN (Reason: shortness of breath or wheezing) Qty: 1 0RF oseltamivir [Tamiflu] 75 mg capsule 75 mg PO BID 5 Days Qty: 10 0RF prednisone 20 mg tablet 40 mg PO DAILY Qty: 8 0RF amoxicillin-pot clavulanate [Augmentin] 875-125 mg tablet 1 tab PO BID 10 Days Qty: 20 0RF ibuprofen 800 mg tablet 800 mg PO Q8H PRN (Reason: pain) Qty: 14 0RF Referrals: Physician,Unknown J [Primary Care Provider] -
[2022-10-13] MEDS: predniSONE 20 MG TABLET PO (04:05)
--- NOTE | 2022-10-13 04:09 | PC.NURSE ---
Pt is hypertensive, Pt has audible throughout bilaterally expiratory wheezing sound. Pt was medicated as order. Pt's girlfriend is at bedside. Pt is on the monitor and it shows sinus tachy. + skin turgor, capillary refill <2.
[2022-10-13] MEDS: Albuterol Sulfate 5 MG, Albuterol Sulfate (0.083%) 2.5 MG 7.5 MG INHALE (04:24)
[2022-10-13] MEDS: Albuterol/Iprat 2.5/0.5MG 3 ML AMPUL.NEB INHALE (04:24)
== END 2022-10-13 05:33 | disposition home or self-care (01) ==
PROVIDERS: Emergency Provider Emergency Medicine
DX: J45.901 Unspecified asthma with (acute) exacerbation (principal); R00.0 Tachycardia, unspecified
CPT/HCPCS: 94640; 99284; 99285

== ENCOUNTER 2022-12-26 17:32 | Emergency (ER) | payer OTHER, SELFPAY ==
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
[2022-12-26 17:51] VITALS: BP 145/91; PULSE 83; RESP 20; TEMP 36.2; O2SAT 98; BMI 29.8
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
[2022-12-26] MEDS: Ketorolac Tromethamine 30 MG/ML VIAL IM (19:15)
== END 2022-12-26 19:22 | disposition home or self-care (01) ==
PROVIDERS: Emergency Provider Emergency Medicine Emergency Medical Services; PCP Internal Medicine
DX: S16.1XXA Strain of muscle, fascia and tendon at neck level, initial encounter (principal); V43.52XA Car driver injured in collision with other type car in traffic accident, initial encounter; Y93.89 Activity, other specified; Y92.414 Local residential or business street as the place of occurrence of the external cause; Y99.9 Unspecified external cause status
CPT/HCPCS: 72040; 73030; 96372; 99282; 99284; J1885

== ENCOUNTER 2023-02-08 14:06 | Emergency (ER) | payer OTHER, SELFPAY ==
--- NOTE | ~2023-02-08 | CT_ITS ---
EXAMINATION: CT ABDOMEN AND PELVIS WITH CONTRAST CLINICAL INFORMATION: Findings pain, fever. COMPARISON: None available. TECHNIQUE: Multidetector volumetric images were obtained from the superior aspect of the liver through the pubic symphysis following administration 85 mL of Omnipaque 350 intravenous contrast. Sagittal and coronal reformatted images were obtained on the technologist's workstation. Oral contrast: No This CT examination was performed using dose optimization techniques as appropriate, variously including the following: *Automated exposure control *Adjustment of mA and/or kV according to patient size (this includes techniques or standardized protocols for targeted exams where dose is matched to indication/reason for exam; i.e. extremities or head) *Use of iterative reconstruction technique DLP: 672 mGy-cm FINDINGS: LUNG BASES: The visualized lung bases are unremarkable. LIVER, GALLBLADDER, AND BILIARY TREE: Decreased attenuation of the liver parenchyma suggesting hepatic steatosis. Otherwise, the liver is normal in size and shape without focal lesion. No biliary ductal dilatation. The gallbladder is unremarkable with no evidence of radiopaque gallstones, gallbladder wall thickening, or obvious pericholecystic inflammatory changes. PANCREAS: Unremarkable. SPLEEN: Unremarkable. ADRENAL GLANDS: Unremarkable. KIDNEYS AND URETERS: The kidneys are normal in size, shape, and attenuation. No hydronephrosis, hydroureter, or calculi seen. No perinephric stranding. BLADDER: Unremarkable. GASTROINTESTINAL TRACT: The stomach and the small bowel are nondilated. Normal appendix. No pericolonic inflammatory changes. No evidence of bowel obstruction. ABDOMINAL WALL: No significant hernia is appreciated. LYMPH NODES: Normal. VASCULAR: Unremarkable. PELVIC VISCERA: Unremarkable. OSSEOUS STRUCTURES: No acute or aggressive appearing osseous abnormalities. CT/CT abdomen pelvis w IV con IMPRESSION: 1. Hepatic steatosis. 2. Otherwise, normal examination.
--- NOTE | ~2023-02-08 | XR_ITS ---
EXAMINATION: XR CHEST CLINICAL INFORMATION: Weakness, history of asthma. COMPARISON: Chest radiograph 10/12/2022. TECHNIQUE: 2 views of the chest were obtained. FINDINGS: No significant abnormality is noted involving the heart, lungs, mediastinum, bony thorax or soft tissues. XR/XR chest 2V IMPRESSION: Unremarkable examination.
[2023-02-08 14:53] VITALS: BP 128/89; PULSE 100; RESP 18; TEMP 39.3; O2SAT 99; BMI 30.5
--- NOTE | 2023-02-08 14:53 | ED.FEVER ---
HPI - Fever General Chief Complaint: Fever <NIKA Gomez Last Filed: 02/08/23 14:56> Stated Complaint: Fever <NIKA Gomez Last Filed: 02/08/23 14:56> Time Seen by Provider: 02/08/23 15:59 <NIKA Gomez Last Filed: 02/08/23 14:56> Source: patient <NIKA Schaffer Last Filed: 02/08/23 17:20> Mode of arrival: ambulatory <NIKA Schaffer Last Filed: 02/08/23 17:20> Limitations: no limitations <NIKA Schaffer Last Filed: 02/08/23 17:20> History of Present Illness HPI Narrative: Patient is a 22 year old assigned male at with no reported medical history presenting to the emergency department today with fever, flank pain, nausea, and vomiting. Patient states that since last night he has had a fever with flank pain and vomiting. Patient denies any dizziness, lightheadedness, chills, blurry vision, double vision, loss of vision, chest pain, difficulty breathing, shortness of breath, back pain, night sweats, pain with urination, increased urinary frequency, increased urinary urgency, blood in his urine or stool, syncope or a near syncopal episode, recent trauma or falls, bowel incontinence, bladder incontinence, bowel retention, bladder retention, or any other complaints at this time. <NIKA Schaffer Last Filed: 02/08/23 17:20> MD elicited complaint: fever <NIKA Schaffer Last Filed: 02/08/23 17:20> Associated symptoms: nausea, vomiting and back/flank pain <NIKA Schaffer Last Filed: 02/08/23 17:20> Treatments prior to arrival fever: none <NIKA Schaffer Last Filed: 02/08/23 17:20> Related Data Home Medications: Previous Rx's Medication Instructions Recorded prednisone 20 mg tablet 40 mg PO DAILY #8 tabs 08/05/21 amoxicillin 875 mg-potassium 1 tab PO BID 10 days #20 tabs 09/13/21 clavulanate 125 mg tablet (Augmentin) ibuprofen 800 mg tablet 800 mg PO Q8H PRN pain #14 tabs 09/13/21 albuterol sulfate 90 mcg/actuation 1 inh inhalation QID PRN shortness 10/08/21 aerosol inhaler of breath or wheezing #6.7 grams prednisone 20 mg tablet 20 mg PO BID #10 tabs 10/08/21 albuterol sulfate 2.5 mg/3 mL 2.5 mg (3 mL) inhalation Q4-6H PRN 10/12/22 (0.083 %) solution for nebulization shortness of breath or wheezing #75 mL albuterol sulfate 90 mcg/actuation 2 inh inhalation Q4-6H PRN 10/12/22 breath activated powder inhaler shortness of breath or wheezing #1 ea oseltamivir 75 mg capsule (Tamiflu) 75 mg PO BID 5 days #10 caps 10/12/22 prednisone 20 mg tablet 40 mg PO DAILY #8 tabs 10/12/22 prednisone 20 mg tablet 20 mg PO BID #10 tabs 10/13/22 methocarbamol 500 mg tablet 500 mg PO TID PRN muscle spasm #10 12/26/22 tabs ondansetron 4 mg disintegrating 4 mg PO Q8H 3 days #9 tabs 02/08/23 tablet <NIKA Gomez - Last Filed: 02/08/23 14:56> Allergies/Adverse Reactions: Allergies Allergy/AdvReac Type Severity Reaction Status Date / Time No Known Allergies Allergy Verified 02/08/23 14:52 <NIKA Gomez Last Filed: 02/08/23 14:56> Review of Systems Constitutional: Constitutional: Reports no additional constitutional complaints, Denies chills, Reports fever(s) and Denies night sweats <NIKA Schaffer Last Filed: 02/08/23 17:20> Eyes: Eyes: Reports no additional eye complaints, Denies blurry vision, Denies change in vision, Denies diplopia, Denies eye discharge, Denies loss of vision and Denies eye pain <NIKA Schaffer Last Filed: 02/08/23 17:20> ENT: Denies dizziness <NIKA Schaffer Last Filed: 02/08/23 17:20> Cardiovascular: Cardiovascular: Reports no additional cardiovascular complaints, Denies chest pain, Denies lightheadedness, Denies Loss of Consciousness and Denies dyspnea <NIKA Schaffer Last Filed: 02/08/23 17:20> Respiratory: Respiratory: Reports no additional respiratory complaints and Denies dyspnea <NIKA Schaffer - Last Filed: 02/08/23 17:20> Gastrointestinal: Gastrointestinal: Reports no additional gastrointestinal complaints, Denies abdominal pain, Denies melena, Denies hematochezia, Denies change in bowel habits, Denies change in stool character, Reports nausea and Reports vomiting <NIKA Schaffer - Last Filed: 02/08/23 17:20> Genitourinary: Genitourinary: Reports no additional male genitourinary complaints, Denies hematuria, Denies oliguria, Denies difficulty urinating, Denies dysuria, Reports flank pain, Denies urinary frequency, Denies urinary hesitancy, Denies urinary incontinence and Denies urinary urgency <NIKA Schaffer - Last Filed: 02/08/23 17:20> Musculoskeletal: Musculoskeletal: Reports no additional musculoskeletal complaints, Denies numbness and Denies tingling <NIKA Schaffer - Last Filed: 02/08/23 17:20> Neurologic: Denies dizziness, Denies loss of vision, Denies numbness and Denies tingling <NIKA Schaffer - Last Filed: 02/08/23 17:20> Psychiatric: Psychiatric: Reports no additional psychiatric complaints <NIKA Schaffer Last Filed: 02/08/23 17:20> Endocrine: Endocrine: Reports no additional endocrine complaints <NIKA Schaffer - Last Filed: 02/08/23 17:20> Hematologic/Lymphatic: Hematologic/Lymphatic: Reports no additional hematologic/lymphatic complaints <NIKA Schaffer - Last Filed: 02/08/23 17:20> Allergic/Immunologic: Allergic/Immunologic: Reports no additional allergic/immunologic complaints <NIKA Schaffer Last Filed: 02/08/23 17:20> PMFSH Past Medical History Attestation statement: The following information was validated with the patient. <NIKA Schaffer Last Filed: 02/08/23 17:20> Source: old records reviewed and nursing notes reviewed <NIKA Schaffer Last Filed: 02/08/23 17:20> Medical History: Medical History Asthma <NIKA Gomez - Last Filed: 02/08/23 14:56> Social History Social History: Social History Substance Use Type: Marijuana Advance Directives: No Advance Directives Information Provided: No <NIKA Gomez - Last Filed: 02/08/23 14:56> Physical Exam Vital Signs: Vital Signs: Last Vital Signs Temp 102.7 F H 02/08/23 14:53 Pulse 100 02/08/23 14:53 Resp 18 02/08/23 14:53 BP 128/89 02/08/23 14:53 Pulse Ox 99 02/08/23 14:53 O2 Del Method Room Air 02/08/23 14:53 BMI result Body Mass Index 30.5 <NIKA Gomez - Last Filed: 02/08/23 14:56> Vital Signs: Last Vital Signs Temp 102.7 F H 02/08/23 14:53 Pulse 100 02/08/23 14:53 Resp 18 02/08/23 14:53 BP 128/89 02/08/23 14:53 Pulse Ox 99 02/08/23 14:53 O2 Del Method Room Air 02/08/23 14:53 BMI result Body Mass Index 30.5 <NIKA Schaffer - Last Filed: 02/08/23 17:20> Const: General: cooperative, no acute distress, alert and awake <NIKA Schaffer - Last Filed: 02/08/23 17:20> Nutritional Appearance: well nourished <NIKA Schaffer - Last Filed: 02/08/23 17:20> Orientation/consciousness: patient oriented x3 <NIKA Schaffer Last Filed: 02/08/23 17:20> Limitations: no limitations <NIKA Schaffer Last Filed: 02/08/23 17:20> HEENT: Head: Yes normal to inspection and Yes atraumatic <NIKA Schaffer Last Filed: 02/08/23 17:20> Ears: hearing grossly normal bilaterally and external ears normal <NIKA Schaffer Last Filed: 02/08/23 17:20> General nose exam: Normal external nose present, no nasal discharge noted and no epistaxis <Britta Sirisha PA - Last Filed: 02/08/23 17:20> Face and sinus: Yes normal facial exam, No abrasion and No laceration <Britta Asherosmar PA - Last Filed: 02/08/23 17:20> Mouth: Normal oral and palatal mucosa present, no drooling and no muffled voice <Britta Sirisha PA - Last Filed: 02/08/23 17:20> Eyes: General: appearance normal, both eyes and all related structures <Britta Sirisha PA - Last Filed: 02/08/23 17:20> Periorbital: periorbital findings normal <Britta Sirisha PA - Last Filed: 02/08/23 17:20> Eyelids: Yes eyelids normal <Britta Grimm PA - Last Filed: 02/08/23 17:20> Conjunctivae: conjunctivae normal <Britta Grimm PA - Last Filed: 02/08/23 17:20> Pupils: Equal, round and reactive pupils present <Britta Grimm PA - Last Filed: 02/08/23 17:20> EOM: EOMs intact bilaterally <Britta Grimm PA - Last Filed: 02/08/23 17:20> Neck: Neck: Yes normal visual inspection, Yes full ROM and Yes no lymphadenopathy <Britta Grimm PA - Last Filed: 02/08/23 17:20> Chest: Chest palpation & inspection: normal inspection of the chest <Britta Grimm PA - Last Filed: 02/08/23 17:20> Resp: Effort & Inspection: normal respiratory effort and able to speak in complete sentences <Britta Grimm PA - Last Filed: 02/08/23 17:20> GI: Inspection: Yes normal to inspection <Britta Grimm PA - Last Filed: 02/08/23 17:20> Palpation (GI): Soft to palpation, not firm, nontender and no guarding <Britta Grimm PA - Last Filed: 02/08/23 17:20> : General: Yes no CVA tenderness <Britta Grimm PA - Last Filed: 02/08/23 17:20> Back/Spine/Pelvis: Back: no CVA tenderness <NIKA Schaffer - Last Filed: 02/08/23 17:20> Neuro: General: patient oriented x3 and moves all extremities <NIKA Schaffer - Last Filed: 02/08/23 17:20> Cranial nerves: Yes Equal, round and reactive pupils present <NIKA Schaffer - Last Filed: 02/08/23 17:20> Cognition (Neuro): normal cognition <NIKA Schaffer - Last Filed: 02/08/23 17:20> Motor exam (neuro): 5/5 motor strength present throughout <NIKA Schaffer - Last Filed: 02/08/23 17:20> Sensory Exam: Normal double simultaneous stimulation for sensation <NIKA Schaffer - Last Filed: 02/08/23 17:20> Coordination: [id number] test normal <NIKA Schaffer - Last Filed: 02/08/23 17:20> Extrem: General: Yes normal to inspection, Yes full ROM and Yes capillary refill normal <NIKA Schaffer - Last Filed: 02/08/23 17:20> Psych: Appearance: grossly normal <NIKA Schaffer - Last Filed: 02/08/23 17:20> Mental Status: mental status grossly normal <NIKA Schaffer - Last Filed: 02/08/23 17:20> Affect: normal affect <NIKA Schaffer - Last Filed: 02/08/23 17:20> Attitude: cooperative <NIKA Schaffer - Last Filed: 02/08/23 17:20> Thought process: Normal thought process present <NIKA Schaffer - Last Filed: 02/08/23 17:20> Thought content: Normal thought content present <NIKA Schaffer - Last Filed: 02/08/23 17:20> Insight: Good insight present (Psych) <NIKA Schaffer - Last Filed: 02/08/23 17:20> Course Course Course Narrative: RME - 22 yo male presents to the ER for evaluation of fevers up to 103 at home for the last 2 todays. He reports decreased PO intake, dry mouth, body aches, generalized weakness, and 2 episodes of vomiting. He reports intermittent abd pain as well, generalized. No urinary symptoms, no cough. +sore throat Plan: basic labs, COVID, Flu and strep swabs <NIKA Gomez - Last Filed: 02/08/23 14:56> Medications Administered Discontinued Medications Generic Name Dose Route Start Last Admin Trade Name Sabiha PRN Reason Stop Dose Admin Sodium Chloride 1,000 mls @ 999 mls/hr 02/08/23 16:00 02/08/23 16:25 Ns IV 02/08/23 17:00 999 mls/hr .Q1H1M CLARENCE Administration Ibuprofen 600 mg 02/08/23 14:56 02/08/23 16:27 Ibuprofen 600 Mg Tablet PO 02/08/23 14:57 600 mg ONCE ONE Administration Iohexol 100 ml 02/08/23 16:37 02/08/23 16:38 Iohexol 350 Mg/Ml 100 Ml Infus..Btl IV 02/08/23 16:38 85 ml ONCE ONE Administration Ondansetron HCl 4 mg 02/08/23 15:59 02/08/23 16:25 Ondansetron Hcl 4 Mg/2 Ml Vial IVPUSH 02/08/23 16:00 4 mg ONCE ONE Administration <NIKA Gomez - Last Filed: 02/08/23 14:56> Medications Administered Discontinued Medications Generic Name Dose Route Start Last Admin Trade Name Sabiha PRN Reason Stop Dose Admin Sodium Chloride 1,000 mls @ 999 mls/hr 02/08/23 16:00 02/08/23 16:25 Ns IV 02/08/23 17:00 999 mls/hr .Q1H1M CLARENCE Administration Ibuprofen 600 mg 02/08/23 14:56 02/08/23 16:27 Ibuprofen 600 Mg Tablet PO 02/08/23 14:57 600 mg ONCE ONE Administration Iohexol 100 ml 02/08/23 16:37 02/08/23 16:38 Iohexol 350 Mg/Ml 100 Ml Infus..Btl IV 02/08/23 16:38 85 ml ONCE ONE Administration Ondansetron HCl 4 mg 02/08/23 15:59 02/08/23 16:25 Ondansetron Hcl 4 Mg/2 Ml Vial IVPUSH 02/08/23 16:00 4 mg ONCE ONE Administration <NIKA Schaffer - Last Filed: 02/08/23 17:20> Medical Decision Making Medical Decision Making MDM Narrative: Patient is a 22 year old assigned male at presenting to the emergency department today with nausea, vomiting, and feeling generally unwell. Patient's physical exam was unremarkable. Patient's blood work showed an elevated WBC count however, I believe this to be secondary to a stress reaction. Patient's chest x-ray and abdomen/pelvis CT showed no acute process. I explained my physical exam findings as well as all test results to the patient. I answered all questions asked by the patient. Patient received IV fluids and PO ibuprofen which he stated helped his symptoms significantly. I stressed the importance of the patient taking his medication as prescribed. I stressed the importance of the patient following up with his primary care provider. I stressed the importance of the patient returning to the emergency department immediately if his symptoms were to worsen or if he were to develop any dizziness, shortness of breath, difficulty breathing, chest pain, blurry vision, loss of vision, nausea, vomiting, abdominal pain, fever, chills, back pain, or any other complaints. Patient verbalized agreement and understanding with this treatment plan and discharge. <NIKA Schaffer - Last Filed: 02/08/23 17:20> Differential Diagnosis Differential Diagnoses: The differential diagnosis associated with the presentation includes <NIKA Schaffer - Last Filed: 02/08/23 17:20> viral illness, nausea, vomiting <NIKA Schaffer - Last Filed: 02/08/23 17:20> Lab Data MDM Lab Attestation statement: I reviewed the patient's lab results. <NIKA Schaffer - Last Filed: 02/08/23 17:20> Result Diagrams: 02/08/23 15:42 02/08/23 15:42 <NIKA Gomez - Last Filed: 02/08/23 14:56> Labs: Lab Results 02/08/23 02/08/23 02/08/23 Range/Units 09:35 15:42 15:42 WBC 18.1 H (4.8-10.8) X10*3/uL RBC 5.49 (4.60-5.80) X10*6/uL Hgb 16.1 (14.0-18.0) g/dl Hct 46.9 (42.0-52.0) % MCV 85.4 (80.0-98.0) fL MCH 29.3 (27.0-33.0) pg MCHC 34.3 (31.0-36.0) g/dl RDW 12.9 (11.0-16.0) % Plt Count 230 (160-400) X10*3/uL MPV 9.9 (9.4-12.4) fL Immature Gran % (Auto) 0.5 H (0.0-0.4) % Neut % (Auto) 83.0 H (45-73) % Lymph % (Auto) 6.8 L (20-40) % [place] % (Auto) 9.4 (2-11) % Eos % (Auto) 0.0 (0-4) % Baso % (Auto) 0.3 (0-2) % Lymph # (Auto) 1.2 (1.2-4.9) X10*3/uL [place] # (Auto) 1.7 H (0.1-1.2) X10*3/uL Eos # (Auto) 0.0 (0.0-0.4) X10*3/uL Baso # (Auto) 0.1 (0.0-0.2) X10*3/uL Abs Immat Gran (auto) 0.09 H (0.00-0.03) X10*3/uL Absolute Neuts (auto) 15.0 H (2.0-8.3) x10*3/uL Absolute Nucleated RBC 0.000 (0.0-0.012) X10*3/uL Nucleated RBC % (auto) 0.0 (0.0-0.2) /100WBC Smear Tech's Comments VERIFIED Sodium 133 L (135-145) mmol/L Potassium 4.0 (3.3-5.1) mmol/L Chloride 100 (96-108) mmol/L Carbon Dioxide 26 (22-29) mmol/L Anion Gap 11 L (12-20) BUN 11 (9-16) mg/dL Creatinine 1.16 (0.5-1.4) mg/dL Estim Creat Clear Calc 124.5 Estimated GFR > 60 Random Glucose 99 (60-115) mg/dL Calcium 9.1 (8.4-10.2) mg/dL Magnesium 1.9 (1.6-2.6) mg/dL Total Bilirubin 1.1 H (0.0-1.0) mg/dL Direct Bilirubin 0.3 (0.0-0.5) mg/dL AST 46 H (5-37) U/L ALT 72 H (0-40) U/L Alkaline Phosphatase 70 (39-117) U/L Total Protein 7.8 (6.5-8.0) g/dL Albumin 4.4 (3.5-5.0) g/dL COVID-19 (MICHELLE) (Negative) COVID-19 Clin Com Monoscreen Negative (Negative) Influenza Type A (SHIRA) (Negative) Influenza Type B (SHIRA) (Negative) Influenza A & B Note S. pyogenes GrpA SHIRA (Negative) 02/08/23 02/08/23 02/08/23 Range/Units 15:42 15:42 15:42 WBC (4.8-10.8) X10*3/uL RBC (4.60-5.80) X10*6/uL Hgb (14.0-18.0) g/dl Hct (42.0-52.0) % MCV (80.0-98.0) fL MCH (27.0-33.0) pg MCHC (31.0-36.0) g/dl RDW (11.0-16.0) % Plt Count (160-400) X10*3/uL MPV (9.4-12.4) fL Immature Gran % (Auto) (0.0-0.4) % Neut % (Auto) (45-73) % Lymph % (Auto) (20-40) % [place] % (Auto) (2-11) % Eos % (Auto) (0-4) % Baso % (Auto) (0-2) % Lymph # (Auto) (1.2-4.9) X10*3/uL [place] # (Auto) (0.1-1.2) X10*3/uL Eos # (Auto) (0.0-0.4) X10*3/uL Baso # (Auto) (0.0-0.2) X10*3/uL Abs Immat Gran (auto) (0.00-0.03) X10*3/uL Absolute Neuts (auto) (2.0-8.3) x10*3/uL Absolute Nucleated RBC (0.0-0.012) X10*3/uL Nucleated RBC % (auto) (0.0-0.2) /100WBC Smear Tech's Comments Sodium (135-145) mmol/L Potassium (3.3-5.1) mmol/L Chloride (96-108) mmol/L Carbon Dioxide (22-29) mmol/L Anion Gap (12-20) BUN (9-16) mg/dL Creatinine (0.5-1.4) mg/dL Estim Creat Clear Calc Estimated GFR Random Glucose (60-115) mg/dL Calcium (8.4-10.2) mg/dL Magnesium (1.6-2.6) mg/dL Total Bilirubin (0.0-1.0) mg/dL Direct Bilirubin (0.0-0.5) mg/dL AST (5-37) U/L ALT (0-40) U/L Alkaline Phosphatase (39-117) U/L Total Protein (6.5-8.0) g/dL Albumin (3.5-5.0) g/dL COVID-19 (MICHELLE) Negative (Negative) COVID-19 Clin Com See Note Monoscreen (Negative) Influenza Type A (SHIRA) Negative (Negative) Influenza Type B (SHIRA) Negative (Negative) Influenza A & B Note See Note S. pyogenes GrpA SHIRA Negative (Negative) <NIKA Gomez - Last Filed: 02/08/23 14:56> Lab Results 02/08/23 02/08/23 02/08/23 Range/Units 09:35 15:42 15:42 WBC 18.1 H (4.8-10.8) X10*3/uL RBC 5.49 (4.60-5.80) X10*6/uL Hgb 16.1 (14.0-18.0) g/dl Hct 46.9 (42.0-52.0) % MCV 85.4 (80.0-98.0) fL MCH 29.3 (27.0-33.0) pg MCHC 34.3 (31.0-36.0) g/dl RDW 12.9 (11.0-16.0) % Plt Count 230 (160-400) X10*3/uL MPV 9.9 (9.4-12.4) fL Immature Gran % (Auto) 0.5 H (0.0-0.4) % Neut % (Auto) 83.0 H (45-73) % Lymph % (Auto) 6.8 L (20-40) % [place] % (Auto) 9.4 (2-11) % Eos % (Auto) 0.0 (0-4) % Baso % (Auto) 0.3 (0-2) % Lymph # (Auto) 1.2 (1.2-4.9) X10*3/uL [place] # (Auto) 1.7 H (0.1-1.2) X10*3/uL Eos # (Auto) 0.0 (0.0-0.4) X10*3/uL Baso # (Auto) 0.1 (0.0-0.2) X10*3/uL Abs Immat Gran (auto) 0.09 H (0.00-0.03) X10*3/uL Absolute Neuts (auto) 15.0 H (2.0-8.3) x10*3/uL Absolute Nucleated RBC 0.000 (0.0-0.012) X10*3/uL Nucleated RBC % (auto) 0.0 (0.0-0.2) /100WBC Smear Tech's Comments VERIFIED Sodium 133 L (135-145) mmol/L Potassium 4.0 (3.3-5.1) mmol/L Chloride 100 (96-108) mmol/L Carbon Dioxide 26 (22-29) mmol/L Anion Gap 11 L (12-20) BUN 11 (9-16) mg/dL Creatinine 1.16 (0.5-1.4) mg/dL Estim Creat Clear Calc 124.5 Estimated GFR > 60 Random Glucose 99 (60-115) mg/dL Calcium 9.1 (8.4-10.2) mg/dL Magnesium 1.9 (1.6-2.6) mg/dL Total Bilirubin 1.1 H (0.0-1.0) mg/dL Direct Bilirubin 0.3 (0.0-0.5) mg/dL AST 46 H (5-37) U/L ALT 72 H (0-40) U/L Alkaline Phosphatase 70 (39-117) U/L Total Protein 7.8 (6.5-8.0) g/dL Albumin 4.4 (3.5-5.0) g/dL COVID-19 (MICHELLE) (Negative) COVID-19 Clin Com Monoscreen Negative (Negative) Influenza Type A (SHIRA) (Negative) Influenza Type B (SHIRA) (Negative) Influenza A & B Note S. pyogenes GrpA SHIRA (Negative) 02/08/23 02/08/23 02/08/23 Range/Units 15:42 15:42 15:42 WBC (4.8-10.8) X10*3/uL RBC (4.60-5.80) X10*6/uL Hgb (14.0-18.0) g/dl Hct (42.0-52.0) % MCV (80.0-98.0) fL MCH (27.0-33.0) pg MCHC (31.0-36.0) g/dl RDW (11.0-16.0) % Plt Count (160-400) X10*3/uL MPV (9.4-12.4) fL Immature Gran % (Auto) (0.0-0.4) % Neut % (Auto) (45-73) % Lymph % (Auto) (20-40) % [place] % (Auto) (2-11) % Eos % (Auto) (0-4) % Baso % (Auto) (0-2) % Lymph # (Auto) (1.2-4.9) X10*3/uL [place] # (Auto) (0.1-1.2) X10*3/uL Eos # (Auto) (0.0-0.4) X10*3/uL Baso # (Auto) (0.0-0.2) X10*3/uL Abs Immat Gran (auto) (0.00-0.03) X10*3/uL Absolute Neuts (auto) (2.0-8.3) x10*3/uL Absolute Nucleated RBC (0.0-0.012) X10*3/uL Nucleated RBC % (auto) (0.0-0.2) /100WBC Smear Tech's Comments Sodium (135-145) mmol/L Potassium (3.3-5.1) mmol/L Chloride (96-108) mmol/L Carbon Dioxide (22-29) mmol/L Anion Gap (12-20) BUN (9-16) mg/dL Creatinine (0.5-1.4) mg/dL Estim Creat Clear Calc Estimated GFR Random Glucose (60-115) mg/dL Calcium (8.4-10.2) mg/dL Magnesium (1.6-2.6) mg/dL Total Bilirubin (0.0-1.0) mg/dL Direct Bilirubin (0.0-0.5) mg/dL AST (5-37) U/L ALT (0-40) U/L Alkaline Phosphatase (39-117) U/L Total Protein (6.5-8.0) g/dL Albumin (3.5-5.0) g/dL COVID-19 (MICHELLE) Negative (Negative) COVID-19 Clin Com See Note Monoscreen (Negative) Influenza Type A (SHIRA) Negative (Negative) Influenza Type B (SHIRA) Negative (Negative) Influenza A & B Note See Note S. pyogenes GrpA SHIRA Negative (Negative) <NIKA Schaffer - Last Filed: 02/08/23 17:20> Independent Interpretation I performed an independent interpretation of an: Plain X-Ray and CT Scan <NIKA Schaffer - Last Filed: 02/08/23 17:20> Interpretation: My interpretation is in agreement with the radiologist's impression of these imaging studies. EXAMINATION: CT ABDOMEN AND PELVIS WITH CONTRAST? CLINICAL INFORMATION: Findings pain, fever.? COMPARISON: None available. TECHNIQUE: Multidetector volumetric images were obtained from the superior aspect of the liver through the pubic symphysis following administration 85 mL of Omnipaque 350 intravenous contrast. Sagittal and coronal reformatted images were obtained on the technologist's workstation.? Oral contrast: No This CT examination was performed using dose optimization techniques as appropriate, variously including the following: *Automated exposure control *Adjustment of mA and/or kV according to patient size (this includes techniques or standardized protocols for targeted exams where dose is matched to indication/reason for exam; i.e. extremities or head) *Use of iterative reconstruction technique DLP: 672 mGy-cm FINDINGS: LUNG BASES: The visualized lung bases are unremarkable.? LIVER, GALLBLADDER, AND BILIARY TREE: Decreased attenuation of the liver parenchyma suggesting hepatic steatosis. Otherwise, the liver is normal in size and shape without focal lesion. No biliary ductal dilatation. The gallbladder is unremarkable with no evidence of radiopaque gallstones, gallbladder wall thickening, or obvious pericholecystic inflammatory changes.? PANCREAS: Unremarkable.? SPLEEN: Unremarkable.? ADRENAL GLANDS: Unremarkable.? KIDNEYS AND URETERS: The kidneys are normal in size, shape, and attenuation. No hydronephrosis, hydroureter, or calculi seen. No perinephric stranding. ? BLADDER: Unremarkable.? GASTROINTESTINAL TRACT: The stomach and the small bowel are nondilated. Normal appendix. No pericolonic inflammatory changes. No evidence of bowel obstruction.? ABDOMINAL WALL: No significant hernia is appreciated.? LYMPH NODES: Normal. VASCULAR: Unremarkable. PELVIC VISCERA: Unremarkable.? OSSEOUS STRUCTURES: No acute or aggressive appearing osseous abnormalities.? CT/CT abdomen pelvis w IV con IMPRESSION: 1.? Hepatic steatosis. 2.? Otherwise, normal examination. Dictated By: Rebekah Lizama Signed By: Electronically signed by Dale 02/08/23 1708 EXAMINATION: XR CHEST CLINICAL INFORMATION: Weakness, history of asthma. COMPARISON: Chest radiograph 10/12/2022. TECHNIQUE: 2 views of the chest were obtained. FINDINGS: No significant abnormality is noted involving the heart, lungs, mediastinum, bony thorax or soft tissues. XR/XR chest 2V IMPRESSION: Unremarkable examination. Dictated By: Rebekah Lizama Signed By: Electronically signed by Rebekah?Dl 02/08/23 1657 <NIKA Schaffer - Last Filed: 02/08/23 17:20> Discharge Plan Discharge Clinical Impression: Viral infection <NIKA Gomez - Last Filed: 02/08/23 14:56> Patient Disposition: Home, Self-Care <NIKA Gomez - Last Filed: 02/08/23 14:56> Instructions: Viral Syndrome (ED) <NIKA Gomez - Last Filed: 02/08/23 14:56> Additional Instructions: Follow up with your primary care provider. Return to the emergency department immediately if your symptoms worsen or if you develop any dizziness, shortness of breath, difficulty breathing, chest pain, blurry vision, loss of vision, nausea, vomiting, abdominal pain, fever, chills, back pain, or any other complaints. <NIKA Gomez - Last Filed: 02/08/23 14:56> Prescriptions: New ondansetron 4 mg tablet,disintegrating 4 mg PO Q8H 3 Days Qty: 9 0RF No Action prednisone 20 mg tablet 20 mg PO BID Qty: 10 0RF albuterol sulfate 90 mcg/actuation HFA aerosol inhaler 1 inh inhalation QID PRN (Reason: shortness of breath or wheezing) Qty: 6.7 0RF prednisone 20 mg tablet 40 mg PO DAILY Qty: 8 0RF albuterol sulfate 2.5 mg /3 mL (0.083 %) solution for nebulization 2.5 mg inhalation Q4-6H PRN (Reason: shortness of breath or wheezing) Qty: 75 0RF albuterol sulfate 90 mcg/actuation aerosol powdr breath activated 2 inh inhalation Q4-6H PRN (Reason: shortness of breath or wheezing) Qty: 1 0RF oseltamivir [Tamiflu] 75 mg capsule 75 mg PO BID 5 Days Qty: 10 0RF methocarbamol 500 mg tablet 500 mg PO TID PRN (Reason: muscle spasm) Qty: 10 0RF prednisone 20 mg tablet 40 mg PO DAILY Qty: 8 0RF amoxicillin-pot clavulanate [Augmentin] 875-125 mg tablet 1 tab PO BID 10 Days Qty: 20 0RF ibuprofen 800 mg tablet 800 mg PO Q8H PRN (Reason: pain) Qty: 14 0RF prednisone 20 mg tablet 20 mg PO BID Qty: 10 0RF <NIKA Gomez - Last Filed: 02/08/23 14:56> Referrals: [facility] [place] Family Medicine [Provider Group] (Call to establish and follow up with a primary care provider. If you already have a primary care provider, please follow up with them.) [facility] [place] Primary Care, Keith [Provider Group] (Call to establish and follow up with a primary care provider. If you already have a primary care provider, please follow up with them.) [facility] [place] Primary Care,Radha [Provider Group] (Call to establish and follow up with a primary care provider. If you already have a primary care provider, please follow up with them.) <NIKA Gomez - Last Filed: 02/08/23 14:56> Stand Alone Forms: Work/School Release <NIKA Gomez - Last Filed: 02/08/23 14:56> Print Language: Croatian <NIKA Gomez - Last Filed: 02/08/23 14:56>
[2023-02-08 15:49] LABS: Basophils Absolute Auto 0.1 X10*3/uL (0.0-0.2); Basophils Percent Auto 0.3 % (0-2); Hematocrit 46.9 % (42.0-52.0); Hemoglobin 16.1 g/dl (14.0-18.0); Imm Gran Abs Auto 0.09 X10*3/uL (0.00-0.03); Imm Gran Pct Auto 0.5 % (0.0-0.4); Lymphocytes Absolute Auto 1.2 X10*3/uL (1.2-4.9); Lymphocytes Percent Auto 6.8 % (20-40); MANUAL DIFF FLAG SCAN; Mean Corpuscular HGB Conc 34.3 g/dl (31.0-36.0); Mean Corpuscular Hemoglobin 29.3 pg (27.0-33.0); Mean Corpuscular Volume 85.4 fL (80.0-98.0); Mean Platelet Volume 9.9 fL (9.4-12.4); Monocytes Absolute Auto 1.7 X10*3/uL (0.1-1.2); Monocytes Percent Auto 9.4 % (2-11); Platelet Count 230 X10*3/uL (160-400); Red Blood Count 5.49 X10*6/uL (4.60-5.80); Red Cell Distribution Width 12.9 % (11.0-16.0); SCAN SMEAR FLAG 1; White Blood Count 18.1 X10*3/uL (4.8-10.8)
[2023-02-08 16:06] LABS: COVID-19 Test Negative (Negative); IDNOW Serial# 08D9AD1C; IDNOW Serial# 9DB6401D; IDNOW Serial# BCCEAD1C; Influenza A Negative (Negative); Influenza B2 Negative (Negative); Strep A Nucleic Acid Negative (Negative)
[2023-02-08 16:10] LABS: SLIDE REVIEW VERIFIED
[2023-02-08 16:11] LABS: Alanine Aminotransferase 72 U/L (0-40); Albumin Level 4.4 g/dL (3.5-5.0); Alkaline Phosphatase 70 U/L (39-117); Anion Gap 11 (12-20); Aspartate Amino Transferase 46 U/L (5-37); Bilirubin Direct 0.3 mg/dL (0.0-0.5); Bilirubin Total 1.1 mg/dL (0.0-1.0); Blood Urea Nitrogen 11 mg/dL (9-16); Calcium 9.1 mg/dL (8.4-10.2); Carbon Dioxide 26 mmol/L (22-29); Chloride 100 mmol/L (96-108); Creatinine Clr Calc Pharmacy 124.5; Estimated Glomerular Filt Rate > 60; Glucose Random 99 mg/dL (60-115); Sodium 133 mmol/L (135-145); Total Protein 7.8 g/dL (6.5-8.0)
[2023-02-08 16:12] LABS: Magnesium 1.9 mg/dL (1.6-2.6)
[2023-02-08 16:13] LABS: Monotest Negative (Negative)
[2023-02-08] MEDS: 0.9 % Sodium Chloride 1,000 ML 999 ML IV (16:25)
[2023-02-08] MEDS: ondansetron HCL 4 MG/2 ML VIAL IVPUSH (16:25)
[2023-02-08] MEDS: Ibuprofen 600 MG TABLET PO (16:27)
[2023-02-08] MEDS: iohexoL 350 MG/ML 100 ML INFUS..BTL IV (16:38)
== END 2023-02-08 17:53 | disposition home or self-care (01) ==
PROVIDERS: Physician Assistant; Emergency Provider Emergency Medicine
DX: B34.9 Viral infection, unspecified (principal); R50.9 Fever, unspecified; R10.9 Unspecified abdominal pain; R53.1 Weakness; M54.50 Low back pain, unspecified; R07.89 Other chest pain; Z20.822 Contact with and (suspected) exposure to COVID-19; Z20.828 Contact with and (suspected) exposure to other viral communicable diseases; Z79.899 Other long term (current) drug therapy
CPT/HCPCS: 36415; 71046; 74177; 80048; 80076; 83735; 85025; 86308; 87502; 87635; 87651; 96361; 96374; 99283; 99284; J2405; Q9967

== ENCOUNTER 2023-02-09 11:56 | Emergency (ER) | payer OTHER, SELFPAY ==
[2023-02-09 12:08] VITALS: BP 115/68; PULSE 100; RESP 18; TEMP 37.6; O2SAT 97; BMI 30.5
--- NOTE | 2023-02-09 12:08 | ED.FEVER ---
HPI - Fever General Chief Complaint: Upper Respiratory Symptoms Stated Complaint: Sore throat/white spots Time Seen by Provider: 02/09/23 12:09 Source: patient Mode of arrival: ambulatory Limitations: no limitations History of Present Illness HPI Narrative: 22 yo male presents to the ER for evaluation of ongoing fevers for 3 days and now worsening sore throat today. He was seen here in the ER but tests came back negative and he was diagnosed with a viral illness. He reports still feeling unwell and now his throat hurts a lot more. He looked inside his mouth and now has swollen tonsils with white spots. It hurts to swallow. MD elicited complaint: fever and other (sore throat) Onset (ago): day(s) (3) Exacerbating factors: nothing Relieving factors: acetaminophen and ibuprofen Associated symptoms: chills, nasal congestion, sore throat, cough, nausea, vomiting and back/flank pain Treatments prior to arrival fever: acetaminophen Related Data Previous Rx's Medication Instructions Recorded prednisone 20 mg tablet 40 mg PO DAILY #8 tabs 08/05/21 amoxicillin 875 mg-potassium 1 tab PO BID 10 days #20 tabs 09/13/21 clavulanate 125 mg tablet (Augmentin) ibuprofen 800 mg tablet 800 mg PO Q8H PRN pain #14 tabs 09/13/21 albuterol sulfate 90 mcg/actuation 1 inh inhalation QID PRN shortness 10/08/21 aerosol inhaler of breath or wheezing #6.7 grams prednisone 20 mg tablet 20 mg PO BID #10 tabs 10/08/21 albuterol sulfate 2.5 mg/3 mL 2.5 mg (3 mL) inhalation Q4-6H PRN 10/12/22 (0.083 %) solution for nebulization shortness of breath or wheezing #75 mL albuterol sulfate 90 mcg/actuation 2 inh inhalation Q4-6H PRN 10/12/22 breath activated powder inhaler shortness of breath or wheezing #1 ea oseltamivir 75 mg capsule (Tamiflu) 75 mg PO BID 5 days #10 caps 10/12/22 prednisone 20 mg tablet 40 mg PO DAILY #8 tabs 10/12/22 prednisone 20 mg tablet 20 mg PO BID #10 tabs 10/13/22 methocarbamol 500 mg tablet 500 mg PO TID PRN muscle spasm #10 12/26/22 tabs ondansetron 4 mg disintegrating 4 mg PO Q8H 3 days #9 tabs 02/08/23 tablet amoxicillin 875 mg-potassium 1 tab PO BID #20 tabs 02/09/23 clavulanate 125 mg tablet ibuprofen 600 mg tablet 600 mg PO Q8H PRN fever or pain 02/09/23 #20 tabs Allergies Allergy/AdvReac Type Severity Reaction Status Date / Time No Known Allergies Allergy Verified 02/09/23 12:08 Review of Systems Review of Systems: Yes all other systems are reviewed and are negative [facility] Past Medical History Medical History Asthma Social History Social History Substance Use Type: Marijuana Advance Directives: No Advance Directives Information Provided: Yes Physical Exam Vital Signs: Vital Signs: Last Vital Signs Temp 99.7 F 02/09/23 12:08 Pulse 100 02/09/23 12:08 Resp 18 02/09/23 12:08 BP 115/68 02/09/23 12:08 Pulse Ox 97 02/09/23 12:08 O2 Del Method Room Air 02/09/23 12:08 BMI result Body Mass Index 30.5 Appearance: Alert. Oriented X3. Pale, No acute distress. Head: normocephalic, atraumatic. ENT: Pharynx normal. +tonsillar swelling & exudate bilaterally, uvula midline, handling secretions normally. Neck: Normal inspection. Neck supple. CVS: Normal heart rate and rhythm. Pulses normal. Respiratory: No respiratory distress. Breath sounds normal. Skin: Skin warm and dry. Normal skin color. Normal skin turgor. No rashes. Extremities: No lower extremity edema. No joint swelling. Neuro/psych: Oriented X 3. grossly normal. CN II-XII intact. Normal speech and cognition. Medical Decision Making Medical Decision Making MDM Narrative: 22 yo male presenting with fevers x3 days and sore throat. Workup yesterday was extensive, WBC 18K. CT abd/pelvis negative, Strep and COVID negative, mono negative. He arrives today with examination c/w strep pharyngitis, will empirically treat. he is afebrile, nontoxic appearing and able to tolerate po stable for d/c home with PO abx. Differential Diagnosis Differential Diagnoses: The differential diagnosis associated with the presentation includes strep, covid, flu, rsv, other viral syndrome, bronchitis, pneumonia, no evidence of peritonsillar abcsess or retropharyngeal abscess Lab Data MDM Lab Attestation statement: I reviewed the patient's lab results. reviewed labs from yesterday Radiology Impression Discussion of test interpretation with radiology: I have reviewed the radiologist's reading. Radiologist Impression: from 02/08: CT/CT abdomen pelvis w IV con IMPRESSION: 1.? Hepatic steatosis. 2.? Otherwise, normal examination. External Record Review External record reviewed: Outpatient record, Prior outpatient labs and Prior outpatient radiology Prescription Management I considered prescription management with: Pain Medication and Antibiotic Critical Care Time Critical Care Time Critical Care Time: No Discharge Plan Discharge Clinical Impression: Pharyngitis Patient Disposition: Home, Self-Care Instructions: Pharyngitis (ED) Additional Instructions: Your exam is consistent with strep throat. Take the prescribed antibiotic as directed - complete the entire course and do miss any doses. Use warm salt water gargles 3 times per day. Recommend over the counter Chloraseptic spray and Cepacol lozenges to help with your sore throat. Rest and drink plenty of fluids. Take alternating motrin and tylenol for fever and pain. If you develop new or worsening symptoms call 911 or come back to the ER for further evaluation. Prescriptions: New amoxicillin-pot clavulanate 875-125 mg tablet 1 tab PO BID Qty: 20 0RF ibuprofen 600 mg tablet 600 mg PO Q8H PRN (Reason: fever or pain) Qty: 20 0RF No Action prednisone 20 mg tablet 20 mg PO BID Qty: 10 0RF albuterol sulfate 90 mcg/actuation HFA aerosol inhaler 1 inh inhalation QID PRN (Reason: shortness of breath or wheezing) Qty: 6.7 0RF prednisone 20 mg tablet 40 mg PO DAILY Qty: 8 0RF albuterol sulfate 2.5 mg /3 mL (0.083 %) solution for nebulization 2.5 mg inhalation Q4-6H PRN (Reason: shortness of breath or wheezing) Qty: 75 0RF albuterol sulfate 90 mcg/actuation aerosol powdr breath activated 2 inh inhalation Q4-6H PRN (Reason: shortness of breath or wheezing) Qty: 1 0RF oseltamivir [Tamiflu] 75 mg capsule 75 mg PO BID 5 Days Qty: 10 0RF methocarbamol 500 mg tablet 500 mg PO TID PRN (Reason: muscle spasm) Qty: 10 0RF prednisone 20 mg tablet 40 mg PO DAILY Qty: 8 0RF amoxicillin-pot clavulanate [Augmentin] 875-125 mg tablet 1 tab PO BID 10 Days Qty: 20 0RF ibuprofen 800 mg tablet 800 mg PO Q8H PRN (Reason: pain) Qty: 14 0RF prednisone 20 mg tablet 20 mg PO BID Qty: 10 0RF ondansetron 4 mg tablet,disintegrating 4 mg PO Q8H 3 Days Qty: 9 0RF Stand Alone Forms: Work/School Release Discharge Date/Time: 02/09/23 12:26
== END 2023-02-09 12:26 | disposition home or self-care (01) ==
LOC: HO.ED 12:17
PROVIDERS: Emergency Provider Emergency Medicine; PCP Internal Medicine
DX: J02.9 Acute pharyngitis, unspecified (principal); R05.9 Cough, unspecified; M54.50 Low back pain, unspecified
CPT/HCPCS: 99282; 99283

== ENCOUNTER 2024-11-12 20:53 | Emergency (ER) | payer OTHER, SELFPAY ==
[2024-11-12 20:57] VITALS: BP 114/38; PULSE 92; RESP 20; TEMP 36.5; O2SAT 96; BMI 29.8
--- NOTE | 2024-11-12 20:59 | ED_ITS ---
HPI - General Adult General Chief complaint: Nausea/Vomiting/Diarrhea Stated complaint: vomiting since this morning Time Seen by Provider: 11/13/24 00:10 Source: patient and old records reviewed Mode of arrival: ambulatory Limitations: no limitations History of Present Illness ED Provider: SIERRA BENTON narrative: 24 yo male with no sig PMH exposed to family member with n/v/d he ate at [employer] last night and then woke up today with abdominal cramps, n/v/d. No fevers no bloody stools. Unable to keep anything down today. No recent travel or abx use. Pain is diffuse and cramping complaint: n/v/d Onset (ago): hour(s) (several) Location: abdomen Radiation: non-radiation Severity: mild Quality: other Pain Consistency: intermittent Relieving factors: none Exacerbating factors: eating Associated symptoms: loss of appetite, malaise, nausea/vomiting and weakness Treatments prior to arrival: none Related Data Previous Rx's ?Medication ?Instructions ?Recorded prednisone 20 mg tablet 40 mg (2 x 20 mg) PO DAILY #8 tabs 08/05/21 amoxicillin 875 mg-potassium 1 tab PO BID 10 days #20 tabs 09/13/21 clavulanate 125 mg tablet (Augmentin) ibuprofen 800 mg tablet 800 mg PO Q8H PRN pain #14 tabs 09/13/21 albuterol sulfate 90 mcg/actuation 1 inh inhalation QID PRN shortness 10/08/21 aerosol inhaler of breath or wheezing #6.7 grams prednisone 20 mg tablet 20 mg PO BID #10 tabs 10/08/21 albuterol sulfate 2.5 mg/3 mL 2.5 mg (3 mL) inhalation Q4-6H PRN 10/12/22 (0.083 %) solution for nebulization shortness of breath or wheezing #75 mL albuterol sulfate 90 mcg/actuation 2 inh inhalation Q4-6H PRN 10/12/22 breath activated powder inhaler shortness of breath or wheezing #1 ea oseltamivir 75 mg capsule (Tamiflu) 75 mg PO BID 5 days #10 caps 10/12/22 prednisone 20 mg tablet 40 mg (2 x 20 mg) PO DAILY #8 tabs 10/12/22 prednisone 20 mg tablet 20 mg PO BID #10 tabs 10/13/22 methocarbamol 500 mg tablet 500 mg PO TID PRN muscle spasm #10 12/26/22 tabs ondansetron 4 mg disintegrating 4 mg PO Q8H 3 days #9 tabs 02/08/23 tablet amoxicillin 875 mg-potassium 1 tab PO BID #20 tabs 02/09/23 clavulanate 125 mg tablet ibuprofen 600 mg tablet 600 mg PO Q8H PRN fever or pain 02/09/23 #20 tabs ondansetron 4 mg disintegrating 4 mg PO Q8H PRN nausea and 11/13/24 tablet vomiting #20 tabs Allergies Allergy/AdvReac Type Severity Reaction Status Date / Time No Known Allergies Allergy Verified 11/12/24 20:58 Review of Systems 2 Review of Systems: Constitutional : No Weight loss, No Fever, No Chills ENT/Mouth : No sore throat, No Rhinorrhea Eyes: No Swelling, No Redness Cardiovascular : No Chest Pain, No SOB, NoEdema Respiratory : No Cough, No Sputum, No Wheezing Gastrointestinal : Positive Nausea, Positive Vomiting, positive Diarrhea, positive abdominal Pain, No Hematochezia, No Melena Genitourinary : No Dysuria, No Urinary Frequency, No Hematuria, No Urgency Musculoskeletal : No joint pain, No Myalgias, No Joint Swelling Skin : No Skin Lesions, No rash Neuro : No Weakness, No Numbness, No Dizziness, No Headache All other systems reviewed and are negative. [facility] Past Medical History Attestation statement: The following information was validated with the patient. Source: old records reviewed Medical History Asthma Social History Social History Alcohol intake: current Alcohol intake frequency: holidays/special occasions only Smoked in Last 30 Days: Yes Use of substances other than those prescribed or required for medical reasons: Yes Substance Use Type: Marijuana Advance Directives: No Advance Directives Information Provided: Yes Physical Exam ED Vital Signs: Vital Signs - 24 hr 11/12/24 20:57 11/13/24 02:00 11/13/24 02:22 Temperature 97.7 F 98.0 F 98.0 F Pulse Rate 92 82 82 Respiratory Rate 20 18 18 Blood Pressure 114/38 L 120/70 120/70 Pulse Oximetry 96 97 97 Oxygen Delivery Method Room Air Room Air Room Air BMI result Body Mass Index 29.8 Appearance: Alert. Oriented X3. No acute distress. Eyes: Pupils equal, round and reactive to light. ENT: Pharynx mildly dry MM Neck: Normal inspection. Neck supple. CVS: Normal heart rate and rhythm. Pulses normal. Respiratory: No respiratory distress. Breath sounds normal. Abdomen: Soft and non-tender. Skin: Skin warm and dry. Normal skin color. Normal skin turgor. Extremities: No lower extremity edema. No calf ttp Neuro: Oriented X 3. No motor deficit. No sensory deficit. CN2-12 intact Course Course Course Narrative: RME: 24 yold male presents to the ED abdominal pain, nuasea, vomitting, and diarrhea after eating [employer]. labs ordereed Medications Administered Discontinued Medications Generic Name Dose Route Start Last Admin Trade Name Freq PRN Reason Stop Dose Admin Diphenhydramine HCl 25 mg 11/13/24 00:31 11/13/24 00:39 Diphenhydramine Hcl 50 Mg/Ml Vial IVPUSH 11/13/24 00:32 25 mg ONCE ONE Administration Lactated Ringer's 1,000 mls @ 999 mls/hr 11/13/24 00:11 11/13/24 01:54 Lr IV 11/13/24 01:11 Infused .Q1H1M ONE Infusion Metoclopramide HCl 10 mg 11/13/24 00:31 11/13/24 00:40 Metoclopramide Hcl 10 Mg/2 Ml Vial IVPUSH 11/13/24 00:32 10 mg ONCE ONE Administration Ondansetron HCl 4 mg 11/12/24 20:59 11/12/24 21:02 Ondansetron Odt 4 Mg Tab.Rapdis TRANSLINGU 11/12/24 21:00 4 mg ONCE ONE Administration Medical Decision Making Medical Decision Making [facility] Narrative: 24 yo male with no sig PMH here with n/v/d and abdominal cramps he has a + sick contact he has no localized abdominal pain at this time will hydrate, obtain basic labs, provide nausea medications and PO challenge. Given lack of localized ttp I do not suspect appendicitis/biliary colic. Differential Diagnosis Differential Diagnoses: The differential diagnosis associated with the presentation includes dehydration viral syndrome Admission/Observation Consideration of admission/observation: Escalation of care including admission/observation considered tolerating PO stable for DC Lab Data [facility] Lab Attestation statement: I reviewed the patient's lab results. 11/12/24 21:17 11/12/24 21:17 Labs: Lab Results 11/12/24 11/13/24 Range/Units 21:17 02:08 WBC 18.1 H (4.8-10.8) X10*3/uL RBC 5.93 H (4.60-5.80) X10*6/uL Hgb 17.8 (14.0-18.0) g/dl Hct 50.3 (42.0-52.0) % MCV 84.8 (80.0-98.0) fL MCH 30.0 (27.0-33.0) pg MCHC 35.4 (31.0-36.0) g/dl RDW 12.5 (11.0-16.0) % Plt Count 286 (160-400) X10*3/uL MPV 10.0 (9.4-12.4) fL Immature Gran % (Auto) 0.5 H (0.0-0.4) % Neut % (Auto) 89.4 H (45-73) % Lymph % (Auto) 3.8 L (20-40) % [place] % (Auto) 4.8 (2-11) % Eos % (Auto) 1.2 (0-4) % Baso % (Auto) 0.3 (0-2) % Lymph # (Auto) 0.7 L (1.2-4.9) X10*3/uL Greene # (Auto) 0.9 (0.1-1.2) X10*3/uL Eos # (Auto) 0.2 (0.0-0.4) X10*3/uL Baso # (Auto) 0.1 (0.0-0.2) X10*3/uL Abs Immat Gran (auto) 0.09 H (0.00-0.03) X10*3/uL Absolute Neuts (auto) 16.2 H (2.0-8.3) x10*3/uL Absolute Nucleated RBC 0.000 (0.0-0.012) X10*3/uL Nucleated RBC % (auto) 0.0 (0.0-0.2) /100WBC Sodium 139 (135-145) mmol/L Potassium 3.9 (3.3-5.1) mmol/L Chloride 108 (96-108) mmol/L Carbon Dioxide 20 L (22-29) mmol/L Anion Gap 15 (12-20) BUN 13 (9-16) mg/dL Creatinine 0.93 (0.5-1.4) mg/dL Estim Creat Clear Calc 151.1 Estimated GFR > 60 Random Glucose 111 (60-115) mg/dL Calcium 9.4 (8.4-10.2) mg/dL Total Bilirubin 2.3 H (0.0-1.0) mg/dL AST 35 (5-37) U/L ALT 56 H (0-40) U/L Alkaline Phosphatase 77 (39-117) U/L Total Protein 8.4 H (6.5-8.0) g/dL Albumin 4.6 (3.5-5.0) g/dL Lipase 21 (8-78) U/L Urine Color Dark Yellow Urine Appearance Cloudy Urine pH 5.5 (5.0-9.0) Ur Specific [place] >= 1.030 H (1.005-1.025) Urine Protein Trace (Neg-Trace) mg/dL Urine Glucose (UA) Negative (Negative) mg/dL Urine Ketones Trace (Negative) mg/dL Urine Blood Negative (Negative) Urine Nitrite Negative (Negative) Ur Leukocyte Esterase Negative (Negative) Influenza Type A (PCR) NEGATIVE (Negative) Influenza Type B (PCR) NEGATIVE (Negative) RSV RNA Qual (PCR) NEGATIVE (Negative) SARS-CoV-2 RNA (RT-PCR) NEGATIVE (Negative) S. pyogenes GrpA SHIRA Negative (Negative) Independent Historian Clinical information obtained from an independent historian. History obtained from or confirmed by: Friend Prescription Management I considered prescription management with: Other Discharge Plan Discharge Clinical Impression: Nausea vomiting and diarrhea Patient Disposition: Home, Self-Care Instructions: Acute Nausea and Vomiting (ED), Acute Diarrhea (ED) Additional Instructions: stay hydrated eat a bland diet apples banana sauce rice and toast return for worsening pain, fevers, bloody stools, unable to eat or drink or any other concerns. Prescriptions: New ondansetron 4 mg tablet,disintegrating 4 mg PO Q8H PRN (Reason: nausea and vomiting) Qty: 20 0RF No Action prednisone 20 mg tablet 20 mg PO BID Qty: 10 0RF albuterol sulfate 90 mcg/actuation HFA aerosol inhaler 1 inh inhalation QID PRN (Reason: shortness of breath or wheezing) Qty: 6.7 0RF prednisone 20 mg tablet 40 mg PO DAILY Qty: 8 0RF albuterol sulfate 2.5 mg /3 mL (0.083 %) solution for nebulization 2.5 mg inhalation Q4-6H PRN (Reason: shortness of breath or wheezing) Qty: 75 0RF albuterol sulfate 90 mcg/actuation aerosol powdr breath activated 2 inh inhalation Q4-6H PRN (Reason: shortness of breath or wheezing) Qty: 1 0RF oseltamivir [Tamiflu] 75 mg capsule 75 mg PO BID 5 Days Qty: 10 0RF methocarbamol 500 mg tablet 500 mg PO TID PRN (Reason: muscle spasm) Qty: 10 0RF prednisone 20 mg tablet 40 mg PO DAILY Qty: 8 0RF amoxicillin-pot clavulanate [Augmentin] 875-125 mg tablet 1 tab PO BID 10 Days Qty: 20 0RF ibuprofen 800 mg tablet 800 mg PO Q8H PRN (Reason: pain) Qty: 14 0RF prednisone 20 mg tablet 20 mg PO BID Qty: 10 0RF ondansetron 4 mg tablet,disintegrating 4 mg PO Q8H 3 Days Qty: 9 0RF amoxicillin-pot clavulanate 875-125 mg tablet 1 tab PO BID Qty: 20 0RF ibuprofen 600 mg tablet 600 mg PO Q8H PRN (Reason: fever or pain) Qty: 20 0RF Stand Alone Forms: Work/School Release Interventions: ED Discharge Assessment Last Done: 11/13/24 02:22 Discharge Date/Time: 11/13/24 02:24 Print Language: Danish
[2024-11-12] MEDS: Ondansetron ODT 4 MG TAB.RAPDIS TRANSLINGU (21:02)
[2024-11-12 21:26] LABS: MANUAL DIFF FLAG NO
[2024-11-12 21:28] LABS: Basophils Absolute Auto 0.1 X10*3/uL (0.0-0.2); Basophils Percent Auto 0.3 % (0-2); Eosinophils Absolute Auto 0.2 X10*3/uL (0.0-0.4); Eosinophils Percent Auto 1.2 % (0-4); Hematocrit 50.3 % (42.0-52.0); Hemoglobin 17.8 g/dl (14.0-18.0); Imm Gran Abs Auto 0.09 X10*3/uL (0.00-0.03); Imm Gran Pct Auto 0.5 % (0.0-0.4); Lymphocytes Absolute Auto 0.7 X10*3/uL (1.2-4.9); Lymphocytes Percent Auto 3.8 % (20-40); Mean Corpuscular HGB Conc 35.4 g/dl (31.0-36.0); Mean Corpuscular Volume 84.8 fL (80.0-98.0); Monocytes Absolute Auto 0.9 X10*3/uL (0.1-1.2); Monocytes Percent Auto 4.8 % (2-11); Neutrophils Absolute Auto 16.2 x10*3/uL (2.0-8.3); Neutrophils Percent Auto 89.4 % (45-73); Platelet Count 286 X10*3/uL (160-400); Red Blood Count 5.93 X10*6/uL (4.60-5.80); Red Cell Distribution Width 12.5 % (11.0-16.0); White Blood Count 18.1 X10*3/uL (4.8-10.8)
[2024-11-12 21:38] LABS: IDNOW Serial# 6674DD1D; Strep A Nucleic Acid Negative (Negative)
[2024-11-12 21:45] LABS: Alanine Aminotransferase 56 U/L (0-40); Albumin Level 4.6 g/dL (3.5-5.0); Alkaline Phosphatase 77 U/L (39-117); Anion Gap 15 (12-20); Aspartate Amino Transferase 35 U/L (5-37); Bilirubin Total 2.3 mg/dL (0.0-1.0); Blood Urea Nitrogen 13 mg/dL (9-16); Calcium 9.4 mg/dL (8.4-10.2); Carbon Dioxide 20 mmol/L (22-29); Chloride 108 mmol/L (96-108); Creatinine Clr Calc Pharmacy 151.1; Estimated Glomerular Filt Rate > 60; Glucose Random 111 mg/dL (60-115); Lipase 21 U/L (8-78); Potassium 3.9 mmol/L (3.3-5.1); Sodium 139 mmol/L (135-145); Total Protein 8.4 g/dL (6.5-8.0)
[2024-11-12 22:08] LABS: Influenza A PCR NEGATIVE (Negative); Influenza B PCR NEGATIVE (Negative); Resp Syncy Virus RNA Qual PCR NEGATIVE (Negative); SARS COV2 PCR INHOUSE NEGATIVE (Negative)
[2024-11-13] MEDS: Lactated Ringers 1,000 ML 999 ML IV (00:39)
[2024-11-13] MEDS: diphenhydrAMINE HCL 50 MG/ML VIAL 25 MG IVPUSH (00:39)
[2024-11-13] MEDS: Metoclopramide HCl 10 MG/2 ML VIAL IVPUSH (00:40)
[2024-11-13 02:00] VITALS: BP 120/70; PULSE 82; RESP 18; TEMP 36.7; O2SAT 97
[2024-11-13 02:17] LABS: Appearance Urine Cloudy; Color Urine Dark Yellow; Glucose Urine UA Negative (Negative); Leukocyte Esterase Urine Negative (Negative); Nitrite Urine Negative (Negative); PH 5.5 (5.0-9.0); Specific Gravity - Urine >= 1.030 (1.005-1.025); Urine Blood Negative (Negative); Urine Ketones Trace mg/dL (Negative); Urine Protein Trace mg/dL (Neg-Trace)
[2024-11-13 02:22] VITALS: BP 120/70; PULSE 82; RESP 18; TEMP 36.7; O2SAT 97
== END 2024-11-13 02:24 | disposition home or self-care (01) ==
PROVIDERS: Physician Assistant; Emergency Provider Emergency Medicine; PCP Internal Medicine
DX: R11.2 Nausea with vomiting, unspecified (principal); R53.1 Weakness; R25.2 Cramp and spasm; Z03.818 Encounter for observation for suspected exposure to other biological agents ruled out; Z79.899 Other long term (current) drug therapy
CPT/HCPCS: 0241U; 80053; 81003; 83690; 85025; 87651; 96361; 96374; 96375; 99284; J1200; J2765; J7120